=== PATIENT | male | born 1945 | race Caucasian/White ===

== ENCOUNTER → 2016-11-22 | Outpatient (CLI) | payer MEDICARE, OTHER ==
[~2016-11-22] MED LIST: ABILIFY2 MG PO; ALPARAZOLAM0.5 MG PO; APRISO0.375 GM PO; ARTIFICIAL TEAR1 OIN OP; ASPIRIN 81MG TA81 MG PO; ATORVASTATIN CA40 MG PO; AVIDOXY100 MG PO; BYETTA250 MCG/ML SC; CARVEDILOL 1212.5 MG PO; CARVEDILOL3.125 MG PO; CARVEDILOL6.25 MG PO; CELEXA40 MG PO; CENTRUM SILVER1 TA1 PO; CLARITIN 10MG T10 MG PO; CLEOCIN HCL300 MG PO; COLAZAL750 M1 PO; CYMBALTA20 MG PO; CYMBALTA60 MG PO; ENTEX PSE 400 M1 CER PO; FERROUS GLUCON324 M1 PO; FERROUS GLUCON324 MG PO; GABAPENTIN100 M1 PO; GLIMEPIRIDE 2MG2 MG PO; GLUCOPHAGE 850850 MG PO; GLUMETZA500 M1 PO; GLUMETZA500 MG PO; HYDROCHLOROTH12.5 M1 PO; HYDROCHLOROTHIA25 M1 PO; LEVAQUIN500 MG PO; LEVOTHYROXIN0.075 M3 PO; LEVOTHYROXIN0.125 M1 PO; LEXAPRO20 M1; LIALDA1.2 GM PO; LISINOPRIL 10MG10 MG PO; LISINOPRIL 20MG20 MG NG; LISINOPRIL40 MG PO; LOPRESSOR 25MG.25 MG PO; LOPRESSOR50 MG PO; LORTAB 5/500 501 TAB PO; LYRICA 100 MG100 MG PO; METFORMIN1000 MG PO; MULTI-VITAMIN1 EACH PO; NASONEX0.05 MG/AC NS; NIASPAN500 MG PO; NITROSTAT0.4 MG SL; OMEPRAZOLE20 MG PO; PHENERGAN 25MG.25 M1 PO; PRILOSEC20 M1 PO; REGLAN 10 MG TA10 MG PO; RELAFEN500 MG PO; SEROQUEL50 MG PO; SIMVASTATIN40 MG PO; ST. JOSEPH81 M1 PO; SYNTHROID 0.0.125 MG PO; TOPROL XL 50MG50 MG PO; TYLENOL ES500 MG PO; VITAMIN C500 M1 PO; VITAMIN D5000 IU PO; VITAMIN D50000 I1 PO; VITAMIN D50000 UNIT PO; XANAX 0.5MG TA0.5 MG PO; ZITHROMAX Z PA250 MG PO; ZOCOR40 MG PO; ZOVIRAX400 M1 PO
--- NOTE | 2016-11-22 11:38 | ST MODIFIED BARIUM SWALLOW ---
SUBJECTIVE-DYSPHAGIA Date: 11/22/16 Time: 1100 Eval Type: Initial Certification - Admitted Date: Primary Diagnosis: Reason for Consult: DYSPHAGIA Pt/Caregiver Concerns: COUGHING WHILE DRINKING AND EATING Onset of symptoms- 2011 Symptoms have worsened? NO improved? NO resolved? NO since onset. Current Diet: REGULAR/THINS Allergies Coded Allergies: DAIRY FOODS (FOOD) (Intermediate, NA-DIARRHEA 09/14/16) Tetanus Vaccines and Toxoid (TETANUS VACCINES & TOXOID) (Intermediate, S-SWELLS- ORAL/THROAT 09/14/16) lactose (Intermediate, NA-DIARRHEA 09/14/16) Home Medications Active Scripts Azithromycin (Zithromycin (Z-ED) 250MG Tab) 250 MG PO DAILY #6 TAB Prov: 11/12/16 Reported Medications METFORMIN HCL (Glucophage 850 Mg Tablet) 500 MG PO QID Loratadine (Claritin 10MG) 10 MG PO DAILY ASPIRIN (Aspirin) 81 MG PO DAILY Levothyroxine Sodium (Synthroid 0.125MG) 0.125 MG PO DAILY Cholecalciferol (Vitamin D3) (Vitamin D) 50,000 UNIT PO TWICE WEEKLY Alprazolam (Xanax 0.5MG) 0.5 MG PO BID Mesalamine (Apriso) 750 MG PO DAILY OMEPRAZOLE MAGNESIUM (Prilosec 20MG) 20 MG PO BID Gabapentin (Gabapentin 100MG) 100 MG PO QID Ferrous Gluconate 324 MG PO DAILY Carvedilol (Carvedilol 3.125MG) 3.125 MG PO BID Atorvastatin Calcium 40 MG PO #30 Levothyroxine Sodium 0.125 MG PO DAILY #90 Is this assessment r/t stroke? No OBJECTIVE COMMUNICATION/COGNITION Barriers to communication/cog? No ORAL-MOTOR STRUCTURE/FUNCTION Structure/Function WFL: Labial, Buccal, Lingual, Velar, Mandibular. Facial Asymmetry None Laryngeal Function Strong: Voluntary Cough, Throat Clearing. Vocal Quality Normal Dentition Partials RESPIRATORY STATUS/HISTORY Is resp status/hx a concern? No DYSPHAGIA SIGNS W/CONSISTENCY Any S/S of Dysphagia? Yes VIDEO SWALLOW REPORT Radiologist: Marlo MONGE,Miah Wei Level of consciousness: Alert Position (degrees): 90 ORAL STAGE Consistencies used for study: Thin, Pudding, Solid, Pill - WFL: Bolus Formation:, Initiation of Swallow:. - No: Chucky.spilled into pharynx, Oral Residue. PHARYNGEAL STAGE Consistencies used for study: Thin, Pudding, Solid, Pill Delayed Swallow Reflex? Yes Epiglottic Closure WFL Penetration-Laryngeal Vestibul Yes - Aspiration? No Pharyngeal Residue? Yes ASSESSMENT/PLAN ASSESSMENT Impression Mr. Nguyen, a 71 year old male, was referred for a MBS based on the recommendations of the when he was evaluated for aspiration pnuemonia via bedside evaluation of swallowing. Mr. 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 He was diagnosed in 2011 and underwent chemotherapy and radation therapy. Mr. Nguyen reports the treatments for cancer did affect his taste and smell. Since the diagnosis of cancer, he has had difficulty with thin liquids and foods that "crumble". Mr. Nguyen was given the following consistencies: thins via straw and open cup , pudding, regular, and pill with thin wash. The following signs of dysphagia were noted: penetration into laryngeal vestibule with thin consistency. It was recommended that Mr. Nguyen impliment the chin tuck compensatory strategy for liquids which improved his swallowing function. No signs of dysphagia were noted when chin tuck was utilized. Mr. Nguyen was given home exercises to strengthen laryngeal elevation, strengthen tongue control, and improve closure of true vocal fold. It is recommended that Mr. Nguyen use the chin down position to widen the valleculae and provide better airway protection. Mr. Nguyen will contact primary care physician if problems continue for therapy recommendation. PLAN SWALLOW GUIDELINES Standard Aspiration Prec., Head Positioning (Chin Down), Alt Bite w/Sip Thru Meal, SIT UPRIGHT DURING MEALS AND 30 MINUTES AFTER PATIENT/CAREGIVER EDUCATION Able-recall/restate what told? Yes Rehab Medicare G Code Plan Medicare/G Code eligible? Yes Therapy Discipline Plan: INSURANCE LOSS ASSESSOR PLAN OF CARE G Code Current Status: SWALLOWING (G8996) Current Status Modifier: 1%-19% IMPAIRED (CI) G Code Goal Status: SWALLOWING (G8997) Goal Status Modifier: 1%-19% IMPAIRED (CI) G Code Discharge Status: SWALLOWING (G8998) Discharge Status Modifier: 1%-19% IMPAIRED (CI) If pt's [facility] benefits exhausted If patient's Medicare benefits are exhausted, please review: #Min Spent: 25 at [phone]
--- NOTE | 2016-11-25 21:48 | RADIOLOGY REPORT PS360 ---
ESOPHAGUS W/CINERADIOGRAPHY INDICATION: ASPIRATION PNEUMONIA dysphagia, thin with drinking and eating. Onset of symptoms since 2011.. Aspiration pneumonia history HISTORY of throat cancer on his second consult diagnosed 2011 Since his surgery and diagnosis has had difficulty with liquids and food sacrum TECHNIQUE & FINDINGS: Study performed conjunction with these pathologist Sveta kellogg. 1 minute 45 seconds fluoroscopy Patient study the lateral projection with video esophagram recording. Various barium consistencies utilized to study swallowing mechanism. 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 Mild/moderate residual at vallecula, which cleared with subsequent swallows and thin wash Barium pill was ingested with thin barium wash And readily passed with no restriction. IMPRESSION: Significant penetration with thin liquids observed, but appear to significantly improved with chin to maneuver. With food noted Mild/moderate residual and vallecula which cleared with subsequent swallows Please see review recommendations from speech pathology
== END ==
LOC: RAD 10:35
DX: R13.10 Dysphagia, unspecified (principal); J69.0 Pneumonitis due to inhalation of food and vomit

== ENCOUNTER 2017-06-20 11:33 | Observation (INO) | payer MEDICARE, OTHER ==
[~2017-06-20] VITALS: Ht 180.3 cm; Wt 103.0 kg
--- NOTE | 2017-06-20 12:02 | HISTORY AND PHYSICAL REPORT ---
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 I have seen him multiple times in my office and have adjusted blood pressure medications several times, and he continues to have struggles with blood pressure readings alternating between 200 systolic and 90s systolic. Came to the office this morning after feeling very weak. He awoke this morning with a blood pressure of 190 systolic, took his regular medication, and on the way to the office became very weak and dizzy, unable to stand and in the office blood pressure was 60 systolic. He was alert, pleasant and talkative, but was transported to the hospital to be admitted for IV fluids, hold and his blood pressure medication and further diagnostic testing. Please note that in the last week in my office he has been evaluated for pheochromocytoma with urine metanephrines which have been negative. CT scan of his adrenal glands and unremarkable. Renal artery stenosis ultrasonography results are pending. Past medical history: Family HX Diabetes No CAD Yes Hypertension Yes Hyperlipidemia No Cancer Yes TB No Immunization HX DT/Tetanus REFUSES Flu THISFLUSEA Pneumonia Received In Past General CAD? Yes Angina: Yes UT: Yes Hypertension? Yes Hyperlipidemia? Yes CHF? No DVT? No PE? No COPD? No Asthma? No Anemia? No GERD? No Gastric ulcers? No GI Bleed? No Hernia? No Thyroid Problems? No Hypothyroidism? No CVA? Yes Seizures? No Diabetes? Yes Insulin Dependent: No Insulin Pump: No Home FSBS? No Renal Insuffiency? No UTI? Yes Stones? Yes BPH? No GB Disease: Yes Nephritic Syndrome? No Asplenia? No Hepatitis? No Sickle Cell Disease? No Arthritis? Yes Migraines? No Cataracts? No Glaucoma? Yes MRSA? No HIV? No TB? No Anxiety? No Depression? No Cancer? Yes Site: PROSTATE CA, THROAT CA Past Surgical HX Previous Surgery?Y ABDOMINAL TUMOR REMOVAL LEFT SHOULDER REPAIR X3 CHOLECYSTECTOMY NASAL SEPTUM REPAIR X2 RIGHT KNEE ARTHROSCOPY TONSILLECTOMY APPENDECTOMY CARDIAC STENTS-SEP 29 CARDIAC STENTES OCT 14 RIGHT KNEE REPLACEMENT SUBDURAL HEMATOMA LEFT ROTATOR CUFF REPAIR VAPORIZATION OF PROSTATE LT KNEE REPLACEMENT ARTIFICIAL URINARY SPHINC Current home meds: Active Scripts Azithromycin (Zithromycin (Z-ED) 250MG Tab) 250 MG PO DAILY #6 TAB Prov: 11/12/16 Reported Medications METFORMIN HCL (Glucophage 850 Mg Tablet) 500 MG PO QID Loratadine (Claritin 10MG) 10 MG PO DAILY ASPIRIN (Aspirin) 81 MG PO DAILY Levothyroxine Sodium (Synthroid 0.125MG) 0.125 MG PO DAILY Cholecalciferol (Vitamin D3) (Vitamin D) 50,000 UNIT PO TWICE WEEKLY Alprazolam (Xanax 0.5MG) 0.5 MG PO BID Mesalamine (Apriso) 750 MG PO DAILY OMEPRAZOLE MAGNESIUM (Prilosec 20MG) 20 MG PO BID Gabapentin (Gabapentin 100MG) 100 MG PO QID Ferrous Gluconate 324 MG PO DAILY Carvedilol (Carvedilol 3.125MG) 3.125 MG PO BID Atorvastatin Calcium 40 MG PO #30 Levothyroxine Sodium 0.125 MG PO DAILY #90 Social Hx: Smoking HX Tobacco No Alcohol Alcohol: No Hx of Drug Use Drug Use? No Patien't marital status is Patient's support system is excellent Review of systems: Constitutional malaise, weakness. No: fever. Respiratory No: no symptoms reported. Cardiovascular see HPI Gastrointestinal/Abdominal No no symptoms reported Genitourinary No: no symptoms reported. Musculoskeletal No: no symptoms reported. Neurological Yes: weakness. Exam: Additional information: Patient is awake, alert, oriented x3. Sitting in a chair, but is unable to stand without significant dizziness. Heart rate regular, lungs clear. Abdomen soft and nontender. No edema noted. No cranial nerve deficits. Plan: Problem List 1. Hypotension Plan: Plan will be to admit to hospital. Hold blood pressure medications for the time being. Cautious IV fluid administration. Check basic labs and echocardiogram. Cardiology consultation at 1202
[2017-06-20 12:19] VITALS: BP 126/56
[2017-06-20 12:23] VITALS: BP 126/56
[2017-06-20] MEDS ORDERED: PLAVIX 75MG TAB75 MG PO (13:03)
[2017-06-20] MEDS ORDERED: AMLO5TAB PO (13:16)
[2017-06-20] MEDS ORDERED: COLAZAL750 M1 PO (13:17)
--- NOTE | 2017-06-20 13:22 | CONSULT NOTE ---
Standard Demographics Patient Demo Date of Consultation: 06/20/17 Referring Provider: Ajith Weston MD Reason for Consultation: Hypotension PRIMARY DIAGNOSIS: HYPOTENSION Problem list Problem list: 1. CAD A. History of AK in 09/2002 with a total of 2 BMS and 1 HENOK placed over the next 1-2 months B. Patient is followed by Dr. Hosea Ochoa, Garden Consultant in [place], [place]. 2. DM, non-insulin dependent 3. HTN, labile since CVA in 08/2016 4. Recurrent CVA since August 2016 A. Patient was given TPA, 08/2016, sent from [facility] to for treatment. B. On aspirin and Plavix. 5. Previous squamous cell carcinoma of the head and neck status post surgery and chemotherapy approximately 2011 6. History of prostate cancer status post "vaporization" 7. Hypothyroidism, on replacement therapy 8. 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 I have seen him multiple times in my office and have adjusted blood pressure medications several times, and he continues to have struggles with blood pressure readings alternating between 200 systolic and 90s systolic. Came to the office this morning after feeling very weak. He awoke this morning with a blood pressure of 190 systolic, took his regular medication, and on the way to the office became very weak and dizzy, unable to stand and in the office blood pressure was 60 systolic. He was alert, pleasant and talkative, but was transported to the hospital to be admitted for IV fluids, hold and his blood pressure medication and further diagnostic testing. Please note that in the last week in my office he has been evaluated for pheochromocytoma with urine metanephrines which have been negative. CT scan of his adrenal glands and unremarkable. Renal artery stenosis ultrasonography results are pending. The above per Dr. Weston. Cardiology consulted for further evaluation of labile blood pressure. Patient states blood pressure has been poorly controlled since his stroke in August of last year. He has no symptoms until his blood pressure is either above 220 mmHg systolic or below 80 mmHg systolic. Denies any chest pain, chest pressure, tightness or shortness of breath. Past Medical History: General: Hypertension Yes CVA Yes Seizures No TB No COPD No Asthma No Diabetes Yes Insulin Dependent No Insulin Pump No Angina Yes AK Yes Hyperlipidemia Yes Urinary No Cancer Yes Rheumatic H.D. No Ulcers Yes MRSA No GB Disease Yes Past Surgical HX: Previous Surgery?Y ABDOMINAL TUMOR REMOVAL LEFT SHOULDER REPAIR X3 CHOLECYSTECTOMY NASAL SEPTUM REPAIR X2 RIGHT KNEE ARTHROSCOPY TONSILLECTOMY APPENDECTOMY CARDIAC STENTS-SEP 29 CARDIAC STENTES OCT 14 RIGHT KNEE REPLACEMENT SUBDURAL HEMATOMA LEFT ROTATOR CUFF REPAIR VAPORIZATION OF PROSTATE LT KNEE REPLACEMENT ARTIFICIAL URINARY SPHINC Allergies Coded Allergies: DAIRY FOODS (FOOD) (Intermediate, NA-DIARRHEA 09/14/16) Tetanus Vaccines and Toxoid (TETANUS VACCINES & TOXOID) (Intermediate, S-SWELLS- ORAL/THROAT 09/14/16) lactose (Intermediate, NA-DIARRHEA 09/14/16) Home medications: Reported Medications METFORMIN HCL (Glucophage 850 Mg Tablet) 500 MG PO BID Gabapentin (Gabapentin 100MG) 100 MG PO TID Carvedilol (Carvedilol 3.125MG) 12.5 MG PO BID CLOPIDOGREL BISULFATE (PLAVIX) 75 MG PO DAILY Amlodipine Besylate (Amlodipine) 5 MG PO DAILY Balsalazide Disodium (Colazal) 750 MG PO BID Loratadine (Claritin 10MG) 10 MG PO DAILY ASPIRIN (Aspirin) 81 MG PO DAILY Cholecalciferol (Vitamin D3) (Vitamin D) 50,000 UNIT PO TWICE WEEKLY Alprazolam (Xanax 0.5MG) 0.5 MG PO BID OMEPRAZOLE MAGNESIUM (Prilosec 20MG) 20 MG PO BID Ferrous Gluconate 324 MG PO DAILY Atorvastatin Calcium 40 MG PO #30 Levothyroxine Sodium 0.125 MG PO DAILY #90 Current Medications: Current Medications Acetaminophen 650 MG Q4HP PRN PO Diagnostic Test (Pha) 1 EACH W/MEALS&HS FS Insulin Human [rDNA origin] SEE ADMIN CRITERIA FOR MEDIUM INTENSITY W/MEALS&HS SC Nicotine 21 MG DAILYP PRN TD Sodium Chloride 1,000 ML .[id number] IV Immunization HX DT/Tetanus REFUSES Flu [id number] FLU SEASON Pneumonia RECEIVED IN PAST TB Test in last year No Family history Family HX Family Hx Insignificant No Diabetes No CAD Yes Hypertension Yes Hyperlipidemia No Cancer Yes TB No Social Hx: Smoking HX Tobacco No Alcohol Alcohol: No Hx of Drug Use Drug Use? No Review of systems: Constitutional see HPI, weakness. Respiratory SOB with excertion. Cardiovascular No no symptoms reported Gastrointestinal/Abdominal No no symptoms reported Genitourinary No: no symptoms reported. Musculoskeletal No: no symptoms reported. Neurological Yes: tingling. Exam: Admission Vital Signs: 1ST Vital Signs Result Date Time Pulse Ox 97 06/20 1219 B/P 126/56 06/20 1219 O2 Delivery ROOM AIR 06/20 1219 Temp 97.9 06/20 1219 Pulse 66 06/20 1219 Resp 18 06/20 1219 Last Vital Signs: Vital Signs Result Date Time Pulse 66 06/20 1223 B/P 126/56 06/20 1223 Temp 97.9 06/20 1223 Resp 18 06/20 1223 Pulse Ox 97 06/20 1223 O2 Delivery ROOM AIR 06/20 1223 Exam General appearance: alert, awake, no acute distress Neck: no carotid bruit, no JVD Cardiovascular: regular rate & rhythm, soft systolic ejection murmur noted along the LEFT sternal border. Respiratory: clear to auscultation, good air movement Extremities: moves all, no peripheral edema Neuro: alert, intact, oriented Laboratory data: Laboratory Tests 06/20/17 1215: Creatine Kinase 71, CK-MB (CK-2) Rel Index 1.1, CK and CKMB Interp 0.8, Troponin I < 0.02 Plan: Assessment: 1. Labile hypertension complicated by history of CVA 2. Evk-bstpcys-emhgvzxxq diabetes mellitus 3. Coronary artery disease with previous coronary artery stenting in 2001, currently asymptomatic. Pt sees his Garden Consultant regularly Recommendations: 1. Echocardiogram has been ordered. 2. With patient's history of CVA would recommend avoiding vasodilator medications. Would recommend switching carvedilol to Lopressor for more subtle blood pressure control. Consider using centrally acting agent such as Aldomet as needed. 3. Consider use of support stockings at 3003
--- NOTE | 2017-06-20 13:22 | CONSULT NOTE ---
Standard Demographics Patient Demo Date of Consultation: 06/20/17 Referring Provider: Ajith Weston MD Reason for Consultation: Hypotension PRIMARY DIAGNOSIS: HYPOTENSION Problem list Problem list: 1. CAD A. History of LA in 09/2002 with a total of 2 BMS and 1 HENOK placed over the next 1-2 months B. Patient is followed by Dr. Hosea Ochoa, C D Reactor Operator in [place], [place]. 2. DM, non-insulin dependent 3. HTN, labile since CVA in 08/2016 4. Recurrent CVA since August 2016 A. Patient was given TPA, 08/2016, sent from [facility] to for treatment. B. On aspirin and Plavix. 5. Previous squamous cell carcinoma of the head and neck status post surgery and chemotherapy approximately 2011 6. History of prostate cancer status post "vaporization" 7. Hypothyroidism, on replacement therapy 8. 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 I have seen him multiple times in my office and have adjusted blood pressure medications several times, and he continues to have struggles with blood pressure readings alternating between 200 systolic and 90s systolic. Came to the office this morning after feeling very weak. He awoke this morning with a blood pressure of 190 systolic, took his regular medication, and on the way to the office became very weak and dizzy, unable to stand and in the office blood pressure was 60 systolic. He was alert, pleasant and talkative, but was transported to the hospital to be admitted for IV fluids, hold and his blood pressure medication and further diagnostic testing. Please note that in the last week in my office he has been evaluated for pheochromocytoma with urine metanephrines which have been negative. CT scan of his adrenal glands and unremarkable. Renal artery stenosis ultrasonography results are pending. The above per Dr. Weston. Cardiology consulted for further evaluation of labile blood pressure. Patient states blood pressure has been poorly controlled since his stroke in August of last year. He has no symptoms until his blood pressure is either above 220 mmHg systolic or below 80 mmHg systolic. Denies any chest pain, chest pressure, tightness or shortness of breath. Past Medical History: General: Hypertension Yes CVA Yes Seizures No TB No COPD No Asthma No Diabetes Yes Insulin Dependent No Insulin Pump No Angina Yes LA Yes Hyperlipidemia Yes Urinary No Cancer Yes Rheumatic H.D. No Ulcers Yes MRSA No GB Disease Yes Past Surgical HX: Previous Surgery?Y ABDOMINAL TUMOR REMOVAL LEFT SHOULDER REPAIR X3 CHOLECYSTECTOMY NASAL SEPTUM REPAIR X2 RIGHT KNEE ARTHROSCOPY TONSILLECTOMY APPENDECTOMY CARDIAC STENTS-SEP 29 CARDIAC STENTES OCT 14 RIGHT KNEE REPLACEMENT SUBDURAL HEMATOMA LEFT ROTATOR CUFF REPAIR VAPORIZATION OF PROSTATE LT KNEE REPLACEMENT ARTIFICIAL URINARY SPHINC Allergies Coded Allergies: DAIRY FOODS (FOOD) (Intermediate, NA-DIARRHEA 09/14/16) Tetanus Vaccines and Toxoid (TETANUS VACCINES & TOXOID) (Intermediate, S-SWELLS- ORAL/THROAT 09/14/16) lactose (Intermediate, NA-DIARRHEA 09/14/16) Home medications: Reported Medications METFORMIN HCL (Glucophage 850 Mg Tablet) 500 MG PO BID Gabapentin (Gabapentin 100MG) 100 MG PO TID Carvedilol (Carvedilol 3.125MG) 12.5 MG PO BID CLOPIDOGREL BISULFATE (PLAVIX) 75 MG PO DAILY Amlodipine Besylate (Amlodipine) 5 MG PO DAILY Balsalazide Disodium (Colazal) 750 MG PO BID Loratadine (Claritin 10MG) 10 MG PO DAILY ASPIRIN (Aspirin) 81 MG PO DAILY Cholecalciferol (Vitamin D3) (Vitamin D) 50,000 UNIT PO TWICE WEEKLY Alprazolam (Xanax 0.5MG) 0.5 MG PO BID OMEPRAZOLE MAGNESIUM (Prilosec 20MG) 20 MG PO BID Ferrous Gluconate 324 MG PO DAILY Atorvastatin Calcium 40 MG PO #30 Levothyroxine Sodium 0.125 MG PO DAILY #90 Current Medications: Current Medications Acetaminophen 650 MG Q4HP PRN PO Diagnostic Test (Pha) 1 EACH W/MEALS&HS FS Insulin Human [rDNA origin] SEE ADMIN CRITERIA FOR MEDIUM INTENSITY W/MEALS&HS SC Nicotine 21 MG DAILYP PRN TD Sodium Chloride 1,000 ML .[id number] IV Immunization HX DT/Tetanus REFUSES Flu [id number] FLU SEASON Pneumonia RECEIVED IN PAST TB Test in last year No Family history Family HX Family Hx Insignificant No Diabetes No CAD Yes Hypertension Yes Hyperlipidemia No Cancer Yes TB No Social Hx: Smoking HX Tobacco No Alcohol Alcohol: No Hx of Drug Use Drug Use? No Review of systems: Constitutional see HPI, weakness. Respiratory SOB with excertion. Cardiovascular No no symptoms reported Gastrointestinal/Abdominal No no symptoms reported Genitourinary No: no symptoms reported. Musculoskeletal No: no symptoms reported. Neurological Yes: tingling. Exam: Admission Vital Signs: 1ST Vital Signs Result Date Time Pulse Ox 97 06/20 1219 B/P 126/56 06/20 1219 O2 Delivery ROOM AIR 06/20 1219 Temp 97.9 06/20 1219 Pulse 66 06/20 1219 Resp 18 06/20 1219 Last Vital Signs: Vital Signs Result Date Time Pulse 66 06/20 1223 B/P 126/56 06/20 1223 Temp 97.9 06/20 1223 Resp 18 06/20 1223 Pulse Ox 97 06/20 1223 O2 Delivery ROOM AIR 06/20 1223 Exam General appearance: alert, awake, no acute distress Neck: no carotid bruit, no JVD Cardiovascular: regular rate & rhythm, soft systolic ejection murmur noted along the LEFT sternal border. Respiratory: clear to auscultation, good air movement Extremities: moves all, no peripheral edema Neuro: alert, intact, oriented Laboratory data: Laboratory Tests 06/20/17 1215: Creatine Kinase 71, CK-MB (CK-2) Rel Index 1.1, CK and CKMB Interp 0.8, Troponin I < 0.02 Plan: Assessment: 1. Labile hypertension complicated by history of CVA 2. Vcq-faaaafs-gqrmcxboi diabetes mellitus 3. Coronary artery disease with previous coronary artery stenting in 2001, currently asymptomatic. Pt sees his C D Reactor Operator regularly Recommendations: 1. Echocardiogram has been ordered. 2. With patient's history of CVA would recommend avoiding vasodilator medications. Would recommend switching carvedilol to Lopressor for more subtle blood pressure control. Consider using centrally acting agent such as Aldomet as needed. 3. Consider use of support stockings at 6211
[2017-06-20 13:29] LABS: HEMOGLOBIN 14.2 g/dL (14.1-18.0); LYMPH # 0.9 K/mm3 (0.7-4.5); LYMPH % 8.7 % (10-50)
--- NOTE | 2017-06-20 13:39 | PHARMACY CLINIC NOTE ---
Patient Demographics Patient Demographics Admission date: 06/20/17 Date: 06/20/17 Time: 1339 Allergies Coded Allergies: DAIRY FOODS (FOOD) (Intermediate, NA-DIARRHEA 09/14/16) Tetanus Vaccines and Toxoid (TETANUS VACCINES & TOXOID) (Intermediate, S-SWELLS- ORAL/THROAT 09/14/16) lactose (Intermediate, NA-DIARRHEA 09/14/16) HEIGHT- FT: 5 IN: 11.00 K.995 VTE General Information Labs: Laboratory Tests 06/20 1215 Hematology Hgb (14.1 - 18.0 g/dL) 14.2 Hct (42.0 - 52.0 %) 43.5 Plt Count (142 - 424 K/mm3) 195 Disclaimer The following section includes nursing documentation that has been pulled in for pharmacy review. Patient's VTE score: 3 Patient's VTE Risk: LOW RISK Clinical trial participant? No VTE prophylaxis [id number] VTE prophylaxis ordered? Yes Type of prophylaxis/treatment: HUYEN at 3254
--- NOTE | 2017-06-20 15:30 | RADIOLOGY REPORT PS360 ---
PROCEDURE: 2-D M-mode and color Doppler study INDICATIONS FOR THE TEST: Chest pain COPD Heart Murmur Tobacco Smoking Palpitations Fatigue Syncope Edema Hypertension+Diabetes Mellitus+ Rheumatic Fever SOB STARKEY Obesity Hyperlipidemia Family History HD Additional History CAD, [place] 2011, CVA 2015 PATIENT INFORMATION HEIGHT: 71 WEIGHT:231 GENDER: Male B/P:125/56 2-D/M-MODE INTERPRETATION: 2-D MEASUREMENTS OBSERVED VALUES IN CMS Right Ventricular Dimension (RVDd) 3.3 Interventricular Septum (Thickness)(IVsd) 1.8 Left Ventricular Internal Dimensions(LVIDd) 4.6 Left Ventricular Posterior Wall (Thickness)(LVPWd) 1.2 Aortic Root 2.9 Aortic Cusp Separation 2.1 Left Atrial Dimensions (LAD) 4.8 2D 1. Left atrium is mildly enlarged, left ventricle is normal size, there is mild concentric left ventricular hypertrophy, visually estimated ejection fraction approximately 55% with no obvious regional wall motion abnormality. 2. The right atrium and right ventricle are mildly enlarged with normal contractility. 3. The aortic valve is minimally thickened and fibrosed leaflet continue to display good mobility. 4. The mitral valve has mitral calcification, there is no mitral stenosis. 5. The tricuspid valve is structurally normal. 6. No significant pericardial effusion noted. 7. The pulmonic valve is poorly visualized. DOPPLER INTERROGATION: Doppler interrogation of the aortic, mitral and tricuspid valvular presence of mild aortic, mild mitral and tricuspid regurgitation, tricuspid regurgitant jet velocity insufficient for calculation of the right ventricular systolic pressure, grade 1 diastolic dysfunction seen without tissue Doppler evidence of raised left atrial pressure. CONCLUSION: 1. Mildly enlarged left atrium, normal left ventricular size, mild concentric left ventricular hypertrophy, visually estimated ejection fraction 55% with no obvious regional wall motion abnormality. Grade 1 diastolic dysfunction seen without tissue Doppler evidence of raised left atrial pressure. 2. Mildly enlarged right ventricle with normal contractility. 3. Mild aortic, mitral and tricuspid regurgitation. 4. No significant pericardial effusion noted.
[2017-06-20 15:48] VITALS: BP 154/84
--- NOTE | 2017-06-20 16:17 | RADIOLOGY REPORT PS360 ---
CHEST(2 VIEWS-NOT PORTABLE) HISTORY: Hypotension admit ORDERING PHYSICIAN: Ajith Weston MD PATIENT AGE: 72 years COMPARISON: 11/11/2016 FINDINGS: The cardiomediastinal silhouette and pulmonary vascularity are within normal limits. The lungs are clear without infiltrates, suspicious nodules, or pleural effusions. No acute bony abnormalities. IMPRESSION: Negative chest, no acute finding
[2017-06-20 20:00] VITALS: BP 161/96
[2017-06-20 21:40] VITALS: BP 161/96
[2017-06-20 23:58] VITALS: BP 169/79
[2017-06-21 04:30] VITALS: BP 147/81
[2017-06-21 06:38] LABS: LYMPH # 0.9 K/mm3 (0.7-4.5); LYMPH % 15.3 % (10-50)
[2017-06-21 07:13] LABS: HEMOGLOBIN 12.5 g/dL (14.1-18.0)
[2017-06-21 07:56] VITALS: BP 154/89
[2017-06-21] MEDS ORDERED: LOPRESSOR 25MG.25 MG PO (08:43)
[2017-06-21] MEDS ORDERED: METHYLDOPA500 MG PO (08:45)
--- NOTE | 2017-06-21 08:50 | ACUTE CARE PROGRESS NOTE (QUA) ---
Progress Notes Subjective Date 06/21/17 Time 0725 Note Patient is sitting up in bed with no complaints. He has been ambulating to the bathroom with no dizziness, chest pain or shortness of breath. Alert and oriented 3. Rate and rhythm regular. No lower extremity edema. Pulses 2+ bilaterally. Abdomen soft and nontender. Patient/family reports: no complaints Nursing reports: no complaints Objective Findings Last VS-Temp:98.2 B/P:154/89 Pulse:72 Resp:20 SaO2:93 ROOM AIR Last weight lbs:227 oz:1 K.995 Method:Bed Scales Reviewed: medications, vital signs, lab results, consult note Assessment/Plan Problem List 1. Hypotension Patient condition Improving Plan: initiate discharge plan This inpt stay is expected to cross 2 MNs from start of care No Comments: He tolerated medication changes without adverse effects. Discharge home on medications as recommended by cardiology. at 0849
--- NOTE | 2017-06-21 08:53 | ACUTE CARE PROGRESS NOTE (QUA) ---
Progress Notes Subjective Date 06/21/17 Time 0830 Note 72 yo WM in bed in NAD. BP improved with IV fluids. No complaints. Objective Findings Last VS-Temp:98.2 B/P:154/89 Pulse:72 Resp:20 SaO2:93 ROOM AIR Last weight lbs:227 oz:1 K.995 Method:Bed Scales Exam General appearance: alert, awake, no acute distress Cardiovascular: regular rate & rhythm Respiratory: clear to auscultation Reviewed: medications, vital signs, lab results Assessment/Plan Problem List 1. Hypotension Patient condition Stable Plan: Pt being discharged home today. Echo shows preserved LVEF with mild HTN changes and no significant valve disease. Continue current lopressor dose and adjust as needed. Pt will follow up with his regular Ancillary Services Manager, Dr. Ochoa. This inpt stay is expected to cross 2 MNs from start of care No at 0802
--- NOTE | 2017-06-21 08:59 | DISCHARGE SUMMARY STANDARD ---
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 I have seen him multiple times in my office and have adjusted blood pressure medications several times, and he continues to have struggles with blood pressure readings alternating between 200 systolic and 90s systolic. Came to the office this morning after feeling very weak. He awoke this morning with a blood pressure of 190 systolic, took his regular medication, and on the way to the office became very weak and dizzy, unable to stand and in the office blood pressure was 60 systolic. He was alert, pleasant and talkative, but was transported to the hospital to be admitted for IV fluids, hold and his blood pressure medication and further diagnostic testing. Please note that in the last week in my office he has been evaluated for pheochromocytoma with urine metanephrines which have been negative. CT scan of his adrenal glands and unremarkable. Renal artery stenosis ultrasonography results are pending. The above per Dr. Weston. Cardiology consulted for further evaluation of labile blood pressure. Patient states blood pressure has been poorly controlled since his stroke in August of last year. He has no symptoms until his blood pressure is either above 220 mmHg systolic or below 80 mmHg systolic. Denies any chest pain, chest pressure, tightness or shortness of breath. Hospital Course Hospital Course: Patient was admitted to acute care. Telemetry was placed which was uneventful. Echocardiogram was obtained and found to be unremarkable with ejection fraction 55 percent. Cardiology was consultated who recommended discontinuing vaso- dilating medications. Patient was changed to Lopressor and Aldomet which he tolerated well through the night. He has had no further hypotension. Discharge home on Lopressor and Aldomet. See medication reconciliation for complete list. Short-term follow-up with myself on Tuesday. Discharge diagnoses Problem List 1. Hypotension Medications Medications: Discharge meds are as noted. Follow up Follow up in office in: 3 DAYS with: GERONIMO LAST APRN at [phone]
[2017-06-21 10:00] VITALS: BP 154/89
[2017-06-21 11:00] VITALS: BP 154/89
--- OUTSIDE RECORDS SUMMARY | 2017-07-28 23:12 | External Medical Summary Rpt ---
Author Author , HOLLY BARRERA Address Unknown Phone [email or web address] Purpose Continuity of Care Document - 03-14-2017 through 2016 Problems Code Diagnosis DOS Provider Status E03.9 Hypothyroid 03-22-2017 ism, unspecified E11.40 Type 2 03-22-2017 diabetes mellitus with diabetic neuropathy, unspecified E78.5 Hyperlipide 03-22-2017 demetrius, unspecified G45.9 Transient 03-22-2017 cerebral ischemic attack, unspecified H26.9 Unspecified 03-22-2017 cataract I16.0 Hypertensiv 03-22-2017 e urgency I25.10 Atheroscler 03-22-2017 otic heart disease of [place] coronary artery without angina pectoris I63.9 Cerebral 03-22-2017 infarction, unspecified I73.9 Peripheral 03-22-2017 vascular disease, unspecified I77.819 Aortic 03-22-2017 ectasia, unspecified site K29.70 Gastritis, 03-22-2017 unspecified , without bleeding K57.90 Diverticulo 03-22-2017 sis of intestine, part unspecified , without perforation or abscess without bleeding K58.9 Irritable 03-22-2017 bowel syndrome without diarrhea Q21.1 Atrial 03-22-2017 septal defect R40.2133 Coma scale, 03-22-2017 eyes open, to sound, at hospital admission R40.2142 Coma scale, 03-22-2017 eyes open, spontaneous , at arrival to emergency department R40.2252 Coma scale, 03-22-2017 best verbal response, oriented, at arrival to emergency department R40.2253 Coma scale, 03-22-2017 best verbal response, oriented, at hospital admission R40.2362 Coma scale, 03-22-2017 best motor response, obeys commands, at arrival to emergency department R40.2363 Coma scale, 03-22-2017 best motor response, obeys commands, at hospital admission Z79.82 FDC 03-22-2017 (current) use of aspirin 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 Z79.899 Other long 03-22-2017 term (current) drug therapy Z85.819 Personal 03-22-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, oral cavity, and pharynx Z96.651 Presence of 03-22-2017 right artificial knee joint Results Labs Lab Lab Date Result Refere Interp Status Commen Order Detail nces retati t Range on Vit B12 SerPl-mCnc (06-30-2017 16:02) Vit B12 442 210-103 complet 017 pg/mL 3 ed SerPl-m 16:02 Cnc Hgb A1c MFr Bld (03-15-2017 04:10) Hgb A1c 6.6 % 4.7-6.0 complet MFr 017 ed Bld 04:10 TSH SerPl DL<=0.005 mIU/L-aCnc (03-14-2017 14:59) TSH 0.33 0.4-4.2 complet SerPl 017 uIU/mL ed DL<=0.0 14:59 05 mIU/L-a Cnc
--- OUTSIDE RECORDS SUMMARY | 2017-07-28 23:12 | External Medical Summary Rpt ---
Author Author [employer] Address Unknown Phone Unavailable Purpose Continuity of Care Document - through 2016
--- OUTSIDE RECORDS SUMMARY | 2017-07-28 23:12 | External Medical Summary Rpt ---
Author Author , BÁRBARA BARRERA Address Unknown Phone [email or web address] Immunization Name Date Rout CVX Reac Dose Comm Prov Is Faci e tion ent ider Refu lity Give sed n Infl 09-2 Intr 0.5 Hist PD20 No PD20 uenz 5-20 amus mL oric 255 255 a 17 cula al Quad r Info rmat W/Pr ion es - Sour ce Unsp ecif ied
--- OUTSIDE RECORDS SUMMARY | 2017-07-28 23:12 | External Medical Summary Rpt ---
Author Author , HOLLY BARRERA Address Unknown Phone [email or web address] Purpose Continuity of Care Document - 03-14-2017 through 2016 Problems Code Diagnosis DOS Provider Status E03.9 Hypothyroid 03-22-2017 ism, unspecified E11.40 Type 2 03-22-2017 diabetes mellitus with diabetic neuropathy, unspecified E78.5 Hyperlipide 03-22-2017 demetrius, unspecified G45.9 Transient 03-22-2017 cerebral ischemic attack, unspecified H26.9 Unspecified 03-22-2017 cataract I16.0 Hypertensiv 03-22-2017 e urgency I25.10 Atheroscler 03-22-2017 otic heart disease of [place] coronary artery without angina pectoris I63.9 Cerebral [...] response, obeys commands, at hospital admission Z79.82 nursing home 03-22-2017 (current) use of aspirin 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
--- OUTSIDE RECORDS SUMMARY | 2017-07-28 23:12 | External Medical Summary Rpt ---
Author Author , BÁRBARA BARRERA Address Unknown Phone [email or web address] Immunization Name Date Rout CVX Reac Dose Comm Prov Is Faci e tion ent ider Refu lity Give sed n Infl 09-2 Intr 0.5 Hist PD20 No PD20 uenz 5-20 amus mL oric 255 255 a 17 cula al Quad r Info rmat W/Pr ion es - Sour ce Unsp ecif ied
--- OUTSIDE RECORDS SUMMARY | 2017-07-28 23:13 | External Medical Summary Rpt ---
Author Author ELIZKURT Perla, [employer] [employer] [facility] [employer] Address Unknown Phone Unavailable Results CBC W Auto Differential panel in Blood Observa Value Referen Units Interpr Notes Date tion ce etation Range Basophils 0 - 0.2 K/MM3 Normal No Jun 21 informati 2017 6:24 [#/volume on in AM ] in source Blood by data Automated count Basophils 0.1 - 2.0 % Normal No Jun 21 /100 informati 2017 6:24 leukocyte on in AM s in source Blood by data Automated count Eosinophi 0.0 - 0.4 K/mm3 Normal No Jun 21 ls informati 2017 6:24 [#/volume on in AM ] in source Blood by data Automated count Eosinophi 0.1 - % Normal No Jun 21 ls/100 12.0 informati 2017 6:24 leukocyte on in AM s in source Blood by data Automated count Granulocy 1.3 - 8.0 K/mm3 Normal No Jun 21 dianna informati 2017 6:24 [#/volume on in AM ] in source Blood by data Automated count Granulocy 37.0 - % Normal No Jun 21 dianna/100 80.0 informati 2017 6:24 leukocyte on in AM s in source Blood by data Automated count Hematocri 42.0 - % Low No Jun 21 t [Volume 52.0 informati 2017 6:24 on in AM Fraction] source of Blood data Hemoglobi 14.1 - g/dL Low No Jun 21 n 18.0 informati 2017 6:24 [Mass/vol on in AM ume] in source Blood data Lymphocyt 0.7 - 4.5 K/mm3 Normal No Jun 21 es informati 2017 6:24 [#/volume on in AM ] in source Unspecifi data ed specimen by Automated count Lymphocyt 10 - 50 % Normal No Jun 21 es informati 2017 6:24 [#/volume on in AM ] in source Unspecifi data ed specimen by Automated count Erythrocy 27 - 31.2 pg Normal No Jun 21 te mean informati 2017 6:24 corpuscul on in AM ar source hemoglobi data n [Entitic mass] Erythrocy 31.8 - g/dl Normal No Jun 21 te mean 35.4 informati 2017 6:24 corpuscul on in AM ar source hemoglobi data n concentra tion [Mass/vol ume] by Automated count Erythrocy 82.2 - fl Normal No Jun 21 te mean 97.8 informati 2017 6:24 corpuscul on in AM ar volume source [Entitic data volume] by Automated count Monocytes 0.1 - 1.0 K/mm3 Normal No Jun 21 informati 2017 6:24 [#/volume on in AM ] in source Blood by data Automated count Monocytes 1.7 - 9.3 % Normal No Jun 21 /100 informati 2017 6:24 leukocyte on in AM s in source Blood by data Automated count Platelet 7.4 - fl Normal No Jun 21 mean 10.4 informati 2017 6:24 volume on in AM [Entitic source volume] data in Blood by Automated count Platelets 142 - 424 K/mm3 Normal No Jun 21 informati 2017 6:24 [#/volume on in AM ] in source Blood data Erythrocy 4.6 - 6.2 M/mm3 Low No Jun 21 dianna informati 2017 6:24 [#/volume on in AM ] in source Amniotic data fluid Erythrocy 11.5 - % Normal No Jun 21 te 17.5 informati 2017 6:24 distribut on in AM ion width source [Entitic data volume] by Automated count Leukocyte 4.8 - K/MM3 No No Jun 21 s 10.8 informati informati 2017 6:24 [#/volume on in on in AM ] in source source Blood data data Basic metabolic panel in Blood Observa Value Referen Units Interpr Notes Date tion ce etation Range Urea 7 - 18 mg/dL Normal No Jun 21 nitrogen informati 2017 6:24 [Mass/vol on in AM ume] in source Serum or data Plasma Calcium 8.5 - mg/dL Low No Jun 21 [Mass/vol 10.1 informati 2017 6:24 ume] in on in AM Serum or source Plasma data Chloride 98 - 107 mmoL/L Normal No Jun 21 [Moles/vo informati 2017 6:24 lume] in on in AM Serum or source Plasma data Carbon 21.0 - mmoL/L Normal No Jun 21 dioxide, 32.0 informati 2017 6:24 total on in AM [Moles/vo source lume] in data Serum or Plasma Creatinin 0.70 - mg/dL Low No Jun 21 e 1.30 informati 2017 6:24 [Mass/vol on in AM ume] in source Serum or data Plasma Creatinin 50 - 200 ML/MIN No No Jun 21 e renal informati informati 2016 6:24 clearance on in on in AM source source predicted data data by Cockcroft -Gault formula Estimated >60 ML/MIN No REFERENCE Jun 21 informati RANGE: 2017 6:24 glomerula on in >60 AM r source ML/MIN/1. filtratio data 73 SQUARE n rate METERSIf (GF this patient is -A merican, then multiply theresult by 1.210. Glucose 74 - 106 mg/dL High No Jun 21 [Mass/vol informati 2016 6:24 ume] in on in AM Serum or source Plasma data Potassium 3.5 - 5.1 mmoL/L Normal No Jun 21 informati 2016 6:24 [Moles/vo on in AM lume] in source Serum or data Plasma Sodium 136 - 145 mmoL/L Normal No Jun 21 [Moles/vo informati 2016 6:24 lume] in on in AM Serum or source Plasma data Glucose [Mass/volume] in Capillary blood by Glucometer Observa Value Referen Units Interpr Notes Date tion ce etation Range Glucose 70 - 110 mg/dl Normal No Jun 21 [Mass/vol informati 2016 6:19 ume] in on in AM Capillary source blood by data Glucomete r Glucose [Mass/volume] in Capillary blood by Glucometer Observa Value Referen Units Interpr Notes Date tion ce etation Range Glucose 70 - 110 mg/dl High No Jun 20 [Mass/vol informati 2016 9:45 ume] in on in PM Capillary source blood by data Glucomete r Glucose [Mass/volume] in Capillary blood by Glucometer Observa Value Referen Units Interpr Notes Date tion ce etation Range Glucose 70 - 110 mg/dl High No Jun 20 [Mass/vol informati 2016 5:47 ume] in on in PM Capillary source blood by data Glucomete r Comprehensive metabolic 2000 panel in Serum or Plasma Observa Value Referen Units Interpr Notes Date tion ce etation Range Albumin/G 1.1 - 1.8 No Normal No Aug 28 lobulin informati informati 2016 [Mass on in on in 12:15 PM ratio] in source source Serum or data data Plasma Albumin 3.4 - 5.0 gm/dL Normal No Jun 20 [Mass/vol informati 2016 ume] in on in 12:15 PM Serum or source Plasma data Alkaline 46 - 116 U/L High No Jun 20 phosphata informati 2016 se on in 12:15 PM [Enzymati source c data activity/ volume] in Serum or Plasma Bilirubin 0.2 - 1.0 mg/dL Normal No Jun 20 .total informati 2016 [Mass/vol on in 12:15 PM ume] in source Serum or data Plasma Urea 7 - 18 mg/dL Normal No Jun 20 nitrogen informati 2016 [Mass/vol on in 12:15 PM ume] in source Serum or data Plasma Calcium 8.5 - mg/dL Low No Jun 20 [Mass/vol 10.1 informati 2016 ume] in on in 12:15 PM Serum or source Plasma data Chloride 98 - 107 mmoL/L Normal No Jun 20 [Moles/vo informati 2016 lume] in on in 12:15 PM Serum or source Plasma data Carbon 21.0 - mmoL/L Normal No Jun 20 dioxide, 32.0 informati 2016 total on in 12:15 PM [Moles/vo source lume] in data Serum or Plasma Creatinin 0.70 - mg/dL Normal No Jun 20 e 1.30 informati 2016 [Mass/vol on in 12:15 PM ume] in source Serum or data Plasma Creatinin 50 - 200 ML/MIN Normal No Jun 20 e renal informati 2016 clearance on in 12:15 PM source predicted data by Cockcroft -Gault formula Estimated >60 ML/MIN No REFERENCE Jun 20 informati RANGE: 2017 glomerula on in >60 12:15 PM r source ML/MIN/1. filtratio data 73 SQUARE n rate METERSIf (GF this patient is -A merican, then multiply theresult by 1.210. Globulin 1.3 - 3.2 gm/dL Normal No Jun 20 [Mass/vol informati 2017 ume] in on in 12:15 PM Serum source data Glucose 74 - 106 mg/dL High No Jun 20 [Mass/vol informati 2016 ume] in on in 12:15 PM Serum or source Plasma data Potassium 3.5 - 5.1 mmoL/L Normal No Jun 202016 [Moles/vo on in 12:15 PM lume] in source Serum or data Plasma Sodium 136 - 145 mmoL/L Normal No Jun 20 [Moles/vo 2016 lume] in on in 12:15 PM Serum or source Plasma data Aspartate 15 - 37 U/L Normal No Jun 202016 aminotran on in 12:15 PM sferase source [Enzymati data c activity/ volume] in Serum or Plasma Alanine 12 - 78 U/L Normal No Jun 20 aminotran 2016 sferase on in 12:15 PM [Enzymati source c data activity/ volume] in Serum or Plasma Protein 6.4 - 8.2 gm/dL Normal No Jun 20 [Mass/vol 2016 ume] in on in 12:15 PM Serum or source Plasma data CBC W Auto Differential panel in Blood Observa Value Referen Units Interpr Notes Date tion ce etation Range Basophils 0 - 0.2 K/MM3 Normal No Jun 202016 [#/volume on in 12:15 PM ] in source Blood by data Automated count Basophils 0.1 - 2.0 % Normal No Jun 20 /100 2016 leukocyte on in 12:15 PM s in source Blood by data Automated count Eosinophi 0.0 - 0.4 K/mm3 Normal No Jun 20 ls 2016 [#/volume on in 12:15 PM ] in source Blood by data Automated count Eosinophi 0.1 - % Normal No Jun 20 ls/100 12.0 2016 leukocyte on in 12:15 PM s in source Blood by data Automated count Granulocy 1.3 - 8.0 K/mm3 High No Jun 20 dianna 2016 [#/volume on in 12:15 PM ] in source Blood by data Automated count Granulocy 37.0 - % High No Jun 20 dianna/100 80.0 2016 leukocyte on in 12:15 PM s in source Blood by data Automated count Hematocri 42.0 - % Normal Jun 20 t [Volume 52.0 2016 on in 12:15 PM Fraction] source of Blood data Hemoglobi 14.1 - g/dL Normal No Jun 20 n 18.0 2016 [Mass/vol on in 12:15 PM ume] in source Blood data Lymphocyt 0.7 - 4.5 K/mm3 Normal No Jun 20 es 2016 [#/volume on in 12:15 PM ] in source Unspecifi data ed specimen by Automated count Lymphocyt 10 - 50 % Low No Jun 20 es 2016 [#/volume on in 12:15 PM ] in source Unspecifi data ed specimen by Automated count Erythrocy 27 - 31.2 pg Normal No Jun 20 te mean 2016 corpuscul on in 12:15 PM ar source hemoglobi data n [Entitic mass] Erythrocy 31.8 - g/dl Normal No Jun 20 te mean 35.4 2016 corpuscul on in 12:15 PM ar source hemoglobi data n concentra tion [Mass/vol ume] by Automated count Erythrocy 82.2 - fl Normal No Jun 20 te mean 97.8 2016 corpuscul on in 12:15 PM ar volume source [Entitic data volume] by Automated count Monocytes 0.1 - 1.0 K/mm3 Normal No Jun 202016 [#/volume on in 12:15 PM ] in source Blood by data Automated count Monocytes 1.7 - 9.3 % Normal No Jun 20 /100 2016 leukocyte on in 12:15 PM s in source Blood by data Automated count Platelet 7.4 - fl Normal No Jun 20 mean 10.4 2016 volume on in 12:15 PM [Entitic source volume] data in Blood by Automated count Platelets 142 - 424 K/mm3 Normal No Jun 202016 [#/volume on in 12:15 PM ] in source Blood data Erythrocy 4.6 - 6.2 M/mm3 Low No Jun 20 dianna 2016 [#/volume on in 12:15 PM ] in source Amniotic data fluid Erythrocy 11.5 - % Normal No Jun 20 te 17.5 2016 distribut on in 12:15 PM ion width source [Entitic data volume] by Automated count Leukocyte 4.8 - K/MM3 Normal No Jun 20 s 10.8 2016 [#/volume on in 12:15 PM ] in source Blood data MISCELLANEOUS TEST Observa Value Referen Units Interpr Notes Date tion ce etation Range MISCELL COMMENT No No No VMA, Jun 14 ANEOUS informa informa informa RANDOM 2017 TEST tion in tion in tion in URINE 9:33 AM source source source data data data RESULT REFEREN CECREAT ININE, RANDOM U 267.6 MG/DL NOT ESTAB.V MA, RANDOM URINE 6.7 MG/DL UNDEFIN EDVMA/C RT, RANDOM U 2.5 MG/G CREAT 0.0 - 6.0 Thyrotropin [Units/volume] in Serum or Plasma Observa Value Referen Units Interpr Notes Date tion ce etation Range Thyrotrop 0.358 - uIU/ml No No Jun 14 in 3.740 informati informati 2017 9:33 [Units/vo on in on in AM lume] in source source Serum or data data Plasma Vanillylmandelate [Mass/time] in 24 hour Urine Observa Value Referen Units Interpr Notes Date tion ce etation Range Vanillylm 1.8 - 6.7 mg/24hr No No Jun 14 andelate informati informati 2017 9:33 [Mass/alf on in on in AM e] in 24 source source hour data data Urine Corticotropin [Mass/volume] in Plasma Observa Value Referen Units Interpr Notes Date tion ce etation Range Corticotr 7.2 - pg/mL No ACTH Jun 14 opin 63.3 informati reference 2017 9:33 [Mass/vol on in interval AM ume] in source for Plasma data samples collected between 7 and10 AM.Perfor med at: [facility] [id number] [place], [place] [id number] Optical Engineering Manager: Valente Salinas PhD, Phone: [phone] Cortisol [Mass/volume] in Serum or Plasma Observa Value Referen Units Interpr Notes Date tion ce etation Range Cortisol . ug/dL No Cortisol Jun 14 [Mass/vol informati AM 2016 9:33 ume] in on in 6.2 - AM Serum or source 19.4Corti Plasma data julia PM 2.3 - 11.9Perfo rmed at: [id number] [id number] [place], [place] [id number] Optical Engineering Manager: Valente Salinas PhD, Phone: [phone] CBC W Auto Differential panel in Blood Observa Value Referen Units Interpr Notes Date tion ce etation Range Basophils 0 - 0.2 K/MM3 Normal No Jun 14 informati 2017 9:33 [#/volume on in AM ] in source Blood by data Automated count Basophils 0.1 - 2.0 % Normal No Jun 14 / informati 2017 9:33 leukocyte on in AM s in source Blood by data Automated count Eosinophi 0.0 - 0.4 K/mm3 Normal No Jun 14 ls informati 2017 9:33 [#/volume on in AM ] in source Blood by data Automated count Eosinophi 0.1 - % Normal No Jun 14 ls/100 12.0 informati 2016 9:33 leukocyte on in AM s in source Blood by data Automated count Granulocy 1.3 - 8.0 K/mm3 Normal No Jun 14 dianna informati 2017 9:33 [#/volume on in AM ] in source Blood by data Automated count Granulocy 37.0 - % Normal No Jun 14 dianna/100 80.0 informati 2017 9:33 leukocyte on in AM s in source Blood by data Automated count Hematocri 42.0 - % Low No Jun 14 t [Volume 52.0 informati 2017 9:33 on in AM Fraction] source of Blood data Hemoglobi 14.1 - g/dL Low No Jun 14 n 18.0 informati 2016 9:33 [Mass/vol on in AM ume] in source Blood data Lymphocyt 0.7 - 4.5 K/mm3 Normal No Jun 14 es informati 2017 9:33 [#/volume on in AM ] in source Unspecifi data ed specimen by Automated count Lymphocyt 10 - 50 % Normal No Jun 14 es informati 2017 9:33 [#/volume on in AM ] in source Unspecifi data ed specimen by Automated count Erythrocy 27 - 31.2 pg Normal No Jun 14 te mean informati 2017 9:33 corpuscul on in AM ar source hemoglobi data n [Entitic mass] Erythrocy 31.8 - g/dl Normal No Jun 14 te mean 35.4 informati 2017 9:33 corpuscul on in AM ar source hemoglobi data n concentra tion [Mass/vol ume] by Automated count Erythrocy 82.2 - fl Normal No Jun 14 te mean 97.8 informati 2016 9:33 corpuscul on in AM ar volume source [Entitic data volume] by Automated count Monocytes 0.1 - 1.0 K/mm3 Normal No Jun 14 informati 2016 9:33 [#/volume on in AM ] in source Blood by data Automated count Monocytes 1.7 - 9.3 % Normal No Jun 14 /100 informati 2017 9:33 leukocyte on in AM s in source Blood by data Automated count Platelet 7.4 - fl Low No Jun 14 mean 10.4 informati 2017 9:33 volume on in AM [Entitic source volume] data in Blood by Automated count Platelets 142 - 424 K/mm3 Normal No Jun 14 informati 2017 9:33 [#/volume on in AM ] in source Blood data Erythrocy 4.6 - 6.2 M/mm3 Low No Jun 14 dianna informati 2017 9:33 [#/volume on in AM ] in source Amniotic data fluid Erythrocy 11.5 - % Normal No Jun 14 te 17.5 informati 2017 9:33 distribut on in AM ion width source [Entitic data volume] by Automated count Leukocyte 4.8 - K/MM3 Low No Jun 14 s 10.8 informati 2017 9:33 [#/volume on in AM ] in source Blood data Comprehensive metabolic 2000 panel in Serum or Plasma Observa Value Referen Units Interpr Notes Date tion ce etation Range Albumin/G 1.1 - 1.8 No Low No Jun 14 lobulin informati informati 2017 9:32 [Mass on in on in AM ratio] in source source Serum or data data Plasma Albumin 3.4 - 5.0 gm/dL Low No Jun 14 [Mass/vol informati 2017 9:32 ume] in on in AM Serum or source Plasma data Alkaline 46 - 116 U/L Normal No Jun 14 phosphata informati 2017 9:32 se on in AM [Enzymati source c data activity/ volume] in Serum or Plasma Bilirubin 0.2 - 1.0 mg/dL Normal No Jun 14 .total informati 2017 9:32 [Mass/vol on in AM ume] in source Serum or data Plasma Urea 7 - 18 mg/dL Normal No Jun 14 nitrogen informati 2017 9:32 [Mass/vol on in AM ume] in source Serum or data Plasma Calcium 8.5 - mg/dL Normal No Jun 14 [Mass/vol 10.1 informati 2017 9:32 ume] in on in AM Serum or source Plasma data Chloride 98 - 107 mmoL/L Normal No Jun 14 [Moles/vo informati 2017 9:32 lume] in on in AM Serum or source Plasma data Carbon 21.0 - mmoL/L Normal No Jun 14 dioxide, 32.0 informati 2017 9:32 total on in AM [Moles/vo source lume] in data Serum or Plasma Creatinin 0.70 - mg/dL Low No Jun 14 e 1.30 informati 2016 9:32 [Mass/vol on in AM ume] in source Serum or data Plasma Estimated >60 ML/MIN No REFERENCE Jun 14 informati RANGE: 2017 9:32 glomerula on in >60 AM r source ML/MIN/1. filtratio data 73 SQUARE n rate METERSIf (GF this patient is -A merican, then multiply theresult by 1.210. Globulin 1.3 - 3.2 gm/dL High No Jun 14 [Mass/vol informati 2016 9:32 ume] in on in AM Serum source data Glucose 74 - 106 mg/dL High No Jun 14 [Mass/vol informati 2016 9:32 ume] in on in AM Serum or source Plasma data Potassium 3.5 - 5.1 mmoL/L Normal No Jun 14 informati 2016 9:32 [Moles/vo on in AM lume] in source Serum or data Plasma Sodium 136 - 145 mmoL/L Normal No Jun 14 [Moles/vo informati 2017 9:32 lume] in on in AM Serum or source Plasma data Aspartate 15 - 37 U/L Normal No Jun 14 informati 2016 9:32 aminotran on in AM sferase source [Enzymati data c activity/ volume] in Serum or Plasma Alanine 12 - 78 U/L Normal No Jun 14 aminotran informati 2016 9:32 sferase on in AM [Enzymati source c data activity/ volume] in Serum or Plasma Protein 6.4 - 8.2 gm/dL Normal No Jun 14 [Mass/vol informati 2016 9:32 ume] in on in AM Serum or source Plasma data
--- OUTSIDE RECORDS SUMMARY | 2017-07-28 23:13 | External Medical Summary Rpt ---
[...] collected between 7 and10 AM.Perfor med at: [facility] [id number] [place], [place] [id number] Masonry Teacher: Valente Salinas PhD, Phone: [phone] Cortisol [Mass/volume] in Serum or Plasma Observa Value Referen Units Interpr Notes Date tion ce etation Range Cortisol . ug/dL No Cortisol Jun 14 [Mass/vol informati AM 2016 9:33 ume] in on in 6.2 - AM Serum or source 19.4Corti Plasma data julia PM 2.3 - 11.9Perfo rmed at: [id number] [place], [place] [id number] Masonry Teacher: Valente Salinas PhD, Phone: [phone] CBC W Auto Differential panel in [...]
== END 2017-06-21 11:06 | disposition home or self-care (01) ==
LOC: 2ND 11:33
PROVIDERS: Internal Medicine Adolescent Medicine
DX: I95.9 Hypotension, unspecified (principal); I10 Essential (primary) hypertension; E11.9 Type 2 diabetes mellitus without complications; Z95.5 Presence of coronary angioplasty implant and graft; Z86.73 Personal history of transient ischemic attack (TIA), and cerebral infarction without residual deficits
CPT/HCPCS: G0378

== ENCOUNTER 2017-08-19 14:53 | Emergency (ER) | payer MEDICARE, OTHER ==
[~2017-08-19] VITALS: Ht 180.3 cm; Wt 108.9 kg
[~2017-08-19 14:53] MED LIST changes: +AMLO5TAB PO; +METHYLDOPA500 MG PO; +PLAVIX 75MG TAB75 MG PO
--- NOTE | 2017-08-19 15:12 | Emergency Room Report ---
History of Present Illness Time Seen by MD Canales Presenting Problem in Triage Pt arrived: Presenting Problem: Onset of symptoms date/time:/ or onset unknown for: Treatment Prior to Arrival: [employer] Provided by: Sepsis Risk Assessment: Temp: B/P: MAP: Pulse: Resp: Recent fever? Clinical Suspician of Infection? Mental Status: Sepsis Risk: Have you (or family members/close friends) recently traveled outside the [place]? If Yes, where/when: Have you had exposure to infectious disease within the past month? TB? Other? Specify: Source patient, RN notes reviewed Exam Limitations no limitations Comment Pt ate breakfast and lunch but around 2:40 pm he had a spell where he got really dizzy, broke out with a sweat and BP dropped to 67/45 and heart rate was 62 at the time. He did not black out but got really weak and things did seem to spin with him. He had a strok in Aug 2016 and was sent to . He had a TIA in February and again in May 2017 but no LOC and he had no LOC with this. He is a Diabetic and has a history of HTN, HLD Cardiac Chest Pain Chest pain indicative of cardiac No Timing/Duration this afternoon ALLERGIES Coded Allergies: DAIRY FOODS (FOOD) (Intermediate, NA-DIARRHEA 08/19/17) Tetanus Vaccines and Toxoid (TETANUS VACCINES & TOXOID) (Intermediate, S-SWELLS- ORAL/THROAT 08/19/17) lactose (Intermediate, NA-DIARRHEA 08/19/17) Home Medications Active Scripts Metoprolol Tartrate (Lopressor) 25 MG PO BID #60 TAB Prov: 06/21/17 Methyldopa 500 MG PO TID #60 TAB Prov: 06/21/17 Reported Medications METFORMIN HCL (Glucophage 850 Mg Tablet) 500 MG PO BID Gabapentin (Gabapentin 100MG) 100 MG PO TID CLOPIDOGREL BISULFATE (PLAVIX) 75 MG PO DAILY Balsalazide Disodium (Colazal) 750 MG PO BID Loratadine (Claritin 10MG) 10 MG PO DAILY ASPIRIN (Aspirin) 81 MG PO DAILY Cholecalciferol (Vitamin D3) (Vitamin D) 50,000 UNIT PO TWICE WEEKLY Alprazolam (Xanax 0.5MG) 0.5 MG PO BID OMEPRAZOLE MAGNESIUM (Prilosec 20MG) 20 MG PO BID Ferrous Gluconate 324 MG PO DAILY Atorvastatin Calcium 40 MG PO #30 Levothyroxine Sodium 0.125 MG PO DAILY #90 History Medical History General Angina: Yes CA: Yes Hypertension? Yes Hyperlipidemia? Yes CHF? No DVT? No PE? No COPD? No Asthma? No Anemia? No GERD? No Gastric ulcers? No GI Bleed? No Hernia? No Thyroid Problems? No Hypothyroidism? No CVA? Yes Seizures? No Diabetes? Yes Insulin Dependent: No Insulin Pump: No Home FSBS? No Renal Insuffiency? No End Stage Renal Disease? No UTI? Yes Stones? Yes BPH? No GB Disease: Yes Nephritic Syndrome? No Asplenia? No Hepatitis? No Sickle Cell Disease? No Arthritis? Yes Migraines? No Cataracts? Yes Glaucoma? No MRSA? No HIV? No TB? No Anxiety? No Depression? 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 No Immunization Hx DT/Tetanus REFUSES Flu THISFLUSEA Pneumonia Received In Past Surgical Hx Previous Surgery?Y ABDOMINAL TUMOR REMOVAL LEFT SHOULDER REPAIR X3 CHOLECYSTECTOMY NASAL SEPTUM REPAIR X2 RIGHT KNEE ARTHROSCOPY TONSILLECTOMY APPENDECTOMY CARDIAC STENTS-SEP 29 CARDIAC STENTES OCT 14 03 RIGHT KNEE REPLACEMENT SUBDURAL HEMATOMA LEFT ROTATOR CUFF REPAIR VAPORIZATION OF PROSTATE LT KNEE REPLACEMENT ARTIFICIAL URINARY SPHINC Family History Family Hx Diabetes No CAD Yes Hypertension Yes Hyperlipidemia No Cancer Yes TB No Social History Alcohol Alcohol: No Review of Systems All Other Systems Reviewed and Negative Constitutional see HPI Cardiovascular see HPI Skin see HPI Psychiatric/Neurological see HPI Physical Exam Vital Signs Vital Signs Date Time Temp Pulse Resp B/P Pulse O2 O2 Flow FiO2 Ox Delivery Rate 08/19 1608 58 117/63 08/19 1607 57 111/61 08/19 1607 61 97/53 08/19 1605 58 14 117/63 94 08/19 1505 98.3 62 18 98 - WBC >12,000 or <4,000 or 10% bands? 2 or more SIRS Criteria Met? B/P: MAP:66 Creatinine >2.0? UA output<0.5ml/kg/hr for 2 hrs? Platelet count >100,000? Lactate >2.0mmol/1? INR >1.2 or PTT > than 60 sec? Evidence of Organ Dysfunction? Provider documented clinical suspician of infection? N Sepsis Criteria Count: 0 Sepsis Risk: Low Sepsis Risk General Appearance normal appearance, WD/WN, no apparent distress Ear, Nose, Throat normal ENT inspection, tongue protrudesin the midline and speech is clear Neck supple, no bruits heard by me Respiratory Status No: respiratory distress. Lung Sounds bilateral: normal breath sounds. Cardiovascular normal exam, regular rate/rhythm Extremities non-tender, normal range of motion Neurologic alert, foundation maker II-XII nml as tested, normal exam, no motor/sensory deficits, oriented x 3, no arm drift, ? mild right leg drift, tongue protrudes in the midline and his speech is clear Medical Decision Making LABS/Meds/Orders Pt receiving controlled substance in ED? No Results/Orders Laboratory Tests 08/19/17 1515: Sodium 140, Potassium 3.9, Chloride 102, Carbon Dioxide 31, BUN 13, Creatinine 0.8, Estimated Creat Clear 127, Estimated GFR (MDRD) 95, Glucose 142 H, Calcium 9.0, Total Bilirubin 0.5, AST 20, ALT 23, Alkaline Phosphatase 134 H, Creatine Kinase 109, CK-MB (CK-2) Rel Index 1.8, CK and CKMB Interp 2.0, Troponin I < 0.02, B-Natriuretic Peptide 66, Total Protein 6.6, Albumin 3.2 L, Globulin 3.4 H, Albumin/Globulin Ratio 0.9 L, TSH 0.45, Free T4 Index 7.7, Thyroxine (T4) 8.4, T3 Uptake 37, WBC 5.4, RBC 4.58 L, Hgb 13.7 L, Hct 41.7 L, MCV 91.0, RDW 13.9, Plt Count 200, MPV 8.0, Gran % 70.1, Gran # 3.8, Lymphocytes % 16.7, Monocytes % 7.6, Eosinophils % 5.2, Basophils % 0.4, Lymphocytes # 0.9, Monocytes # 0.4, Eosinophils # 0.3, Basophils # 0.0, PUBS MCHC 33.0, MCH 30.0 Current Medication Orders Sig/Bebeto Start time Last Medication Dose Route Stop Time Status Admin Sodium Chloride 1,000 ML .Q1H1M 08/19 1545 DC 08/19 IV 08/19 1645 1604 Sodium Chloride 10 ML PRN PRN 08/19 1545 AC IV 08/20 1533 Sodium Chloride 1,000 ML .STK-MED ONE 08/19 1537 DC IV Sodium Chloride 10 ML PRN PRN 08/19 151 AC IV 08/20 1510 Orders Procedure Date/time Status DIET-NOTHING BY MOUTH 08/[address] HEAD REQ 08/19 1534 Active ORTHOSTATIC B/P 08/19 1534 Active ELECTROCARDIOGRAM REQUEST 08/19 151 Active IV SALINE LOCK 08/19 151 Active THYROID PANEL 2 (WITH TSH) 08/19 1511 Complete CBC WITH AUTO DIFF 08/19 1511 Complete CARDIAC ENZYMES 08/19 1511 Complete CHEM 12 PROFILE 08/19 1511 Complete BRAIN NATRIURETIC PEPTIDE 08/19 1511 Complete 12 LEAD EKG-ANUSHKA (INITIAL) 08/19 1510 Active Departure Departure Time of Disposition 174 Disposition DC Home or Self Care(routine) Clinical Impression Primary Impression: TIA (transient ischemic attack) Qualifiers: Transient cerebral ischemia type: unspecified Qualified Code: G45.9 - Transient cerebral ischemic attack, unspecified Secondary Impressions: Diabetes mellitus type 2, uncomplicated Qualifiers: Diabetes mellitus senior care insulin use: without senior care use Qualified Code: E11.9 - Type 2 diabetes mellitus without complications Condition STABLE Referrals Ajith Weston MD (Family): 3 Days-Call Office Patient Instructions DI for Transient Ischemic Attack, Transient Ischemic Attack Additional Instructions Discussed results of all tests with pt. He may have had a TIA but is now back to baseline. Offered to refer to but he does not wish to go. Advised to check sugars more often and drink more fluids and followup with Dr. Weston as needed. Discharge Counseling Counseled pt/family regarding diagnosis, test results, home care, follow up needs ED Critical Care Critical Care No If Critical Care minutes are documented, the time involved in the performance of seperately reportable procedures was not counted toward critical care time documented. I directly delivered medical care to this critically ill and/or injured patient. Timely evaluation and treatment was necessary to address the significant organ system(s) dysfunction present in this patient. at 1743
[2017-08-19 15:25] LABS: HEMOGLOBIN 13.7 g/dL (14.1-18.0); LYMPH # 0.9 K/mm3 (0.7-4.5); LYMPH % 16.7 % (10-50)
[2017-08-19 15:53] LABS: BUN 13 mg/dL (7-18); FREE THYROXIN INDEX 7.7 ug/dl (5.93-13.13)
[2017-08-19 15:55] LABS: GFR (ESTIMATED) 95 ML/MIN (>60)
--- NOTE | 2017-08-19 16:06 | RADIOLOGY REPORT PS360 ---
CHEST(2 VIEWS-NOT PORTABLE) HISTORY: DIZZY,WEAK ORDERING PHYSICIAN: Alicia Whiteside MD PATIENT AGE: 72 years COMPARISON: 06/20/2017 FINDINGS: The cardiomediastinal silhouette and pulmonary vascularity are within normal limits. Calcified nodes are present in the left hilum. No lobar consolidation or collapse.. No acute bony abnormalities. IMPRESSION: No change with no acute finding
--- NOTE | 2017-08-19 16:09 | RADIOLOGY REPORT PS360 ---
CT HEAD W/O CONTRAST HISTORY: Dizziness and weakness DIZZINESS ORDERING PHYSICIAN: Alicia Whiteside MD PATIENT AGE: 72 years COMPARISON: 09/14/2016 TECHNIQUE: Axial images obtained without contrast. Brain and bone windows reviewed. FINDINGS: No midline shift, mass effect, intracranial hemorrhage, hydrocephalus, or extra-axial fluid collection is evident. Involutional changes of age with mild atrophy and periventricular ischemic gliotic change. Prior right parietal craniotomy. Intracranial atherosclerotic changes. Mild mucosal thickening ethmoid sinuses. Small right mastoid effusion. IMPRESSION: 1. No acute intracranial findings. 2. Minimal amount fluid in right mastoid sinus and mild ethmoid sinus disease
[2017-08-19 17:57] VITALS: BP 160/90
--- OUTSIDE RECORDS SUMMARY | 2017-08-19 18:28 | External Medical Summary Rpt | CCD ---
Author Author , HOLLY BARRERA Address Unknown Phone [email or web address] Immunization Name Date Rout CVX Reac Dose Comm Prov Is Faci e tion ent ider Refu lity Give sed n Infl 09-2 Intr 0.5 Hist PD20 No PD20 uenz 5-20 amus mL oric 255 255 a 17 cula al Quad r Info rmat W/Pr ion es - Sour ce Unsp ecif ied
--- OUTSIDE RECORDS SUMMARY | 2017-08-19 18:28 | External Medical Summary Rpt | CCD ---
Author Author , HOLLY BARRERA Address Unknown Phone [email or web address] Purpose Continuity of Care Document - 03-14-2017 through 2016 Results Labs Lab Lab Date Result Refere [...]
--- OUTSIDE RECORDS SUMMARY | 2017-08-19 18:28 | External Medical Summary Rpt | CCD ---
Author Author , HOLLY BARRERA Address Unknown Phone [email or web address] Purpose Continuity of Care Document - 03-14-2017 [...]
--- OUTSIDE RECORDS SUMMARY | 2017-08-19 18:28 | External Medical Summary Rpt | CCD ---
Author Author , HOLLY BARRERA Address Unknown Phone [email or web address] Immunization Name Date Rout CVX Reac Dose Comm Prov Is Faci e tion ent ider Refu lity Give sed n Infl 09-2 Intr 0.5 Hist PD20 No PD20 uenz 5-20 amus mL oric 255 255 a 17 cula al Quad r Info rmat W/Pr ion es - Sour ce Unsp ecif ied
--- OUTSIDE RECORDS SUMMARY | 2017-08-19 18:29 | External Medical Summary Rpt ---
[...] collected between 7 and10 AM.Perfor med at: [facility] [id number] [place], [place] [id number] Hoop Bending Machine Operator: Valente Salinas PhD, Phone: [phone] Cortisol [Mass/volume] in Serum or Plasma Observa Value Referen Units Interpr Notes Date tion ce etation Range Cortisol . ug/dL No Cortisol Jun 14 [Mass/vol informati AM 2016 9:33 ume] in on in 6.2 - AM Serum or source 19.4Corti Plasma data julia PM 2.3 - 11.9Perfo rmed at: [id number] [place], [place] [id number] Hoop Bending Machine Operator: Valente Salinas PhD, Phone: [phone] CBC W Auto Differential panel in [...]
--- OUTSIDE RECORDS SUMMARY | 2017-08-19 18:29 | External Medical Summary Rpt ---
[...] collected between 7 and10 AM.Perfor med at: [facility] [id number] [place], [place] [id number] Triage Clinician: Valente Salinas PhD, Phone: [phone] Cortisol [Mass/volume] in Serum or Plasma Observa Value Referen Units Interpr Notes Date tion ce etation Range Cortisol . ug/dL No Cortisol Jun 14 [Mass/vol informati AM 2016 9:33 ume] in on in 6.2 - AM Serum or source 19.4Corti Plasma data julia PM 2.3 - 11.9Perfo rmed at: [id number] [place], [place] [id number] Triage Clinician: Valente Salinas PhD, Phone: [phone] CBC W Auto Differential panel in [...]
[2017-08-20] MEDS ORDERED: METOPROLOL25 MG PO (12:26)
[2017-08-20] MEDS ORDERED: FLUOXETINE HYDR20 MG PO (12:28)
[2017-08-20] MEDS ORDERED: METFORMIN ER500 M1 PO (12:28)
[2017-08-20] MEDS ORDERED: AMLO5TAB PO (15:02)
== END 2017-08-19 17:58 | disposition home or self-care (01) ==
LOC: UTC 14:53 → ER 14:58 → UTC 14:58 → ER 17:58
PROVIDERS: General Practice
DX: G45.9 Transient cerebral ischemic attack, unspecified (principal); E11.9 Type 2 diabetes mellitus without complications; Z79.84 Long term (current) use of oral hypoglycemic drugs; R42 Dizziness and giddiness; I10 Essential (primary) hypertension; R06.02 Shortness of breath

== ENCOUNTER 2017-08-20 12:12 | Emergency (ER) | payer MEDICARE, OTHER ==
[~2017-08-20] VITALS: Ht 182.9 cm; Wt 104.8 kg
[2017-08-20] MEDS ORDERED: METOPROLOL25 MG PO (12:26)
[2017-08-20] MEDS ORDERED: METFORMIN ER500 M1 PO (12:28)
[2017-08-20] MEDS ORDERED: FLUOXETINE HYDR20 MG PO (12:28)
--- OUTSIDE RECORDS SUMMARY | 2017-08-20 12:34 | External Medical Summary Rpt | CCD ---
Demographics Preferred Language Belarusian Marital Status Unknown Yazdanism Affiliation Unknown Race Unknown Ethnic Group Unknown Author Author , HOLLY BARRERA Address Unknown Phone Immunization Unable to retrieve immunization data due to connection failure with Immunization Registry. Please try again later.
--- OUTSIDE RECORDS SUMMARY | 2017-08-20 12:34 | External Medical Summary Rpt | CCD ---
Demographics Preferred Language Ukrainian Marital Status Unknown Judaism Affiliation Unknown Race Unknown Ethnic Group Unknown Author Author , HOLLY BARRERA Address Unknown Phone Immunization Unable to retrieve immunization data due to connection failure with Immunization Registry. Please try again later.
--- OUTSIDE RECORDS SUMMARY | 2017-08-20 12:34 | External Medical Summary Rpt | CCD ---
Author Author , HOLLY BARRERA Address Unknown Phone [email or web address] Purpose Continuity of Care Document - 03-14-2017 [...]
--- OUTSIDE RECORDS SUMMARY | 2017-08-20 12:34 | External Medical Summary Rpt | CCD ---
Author Author , HOLLY BARRERA Address Unknown Phone [email or web address] Purpose Continuity of Care Document - 03-14-2017 [...]
--- OUTSIDE RECORDS SUMMARY | 2017-08-20 12:35 | External Medical Summary Rpt ---
Author Author [employer] Organization [employer] Address Unknown Phone Unavailable Results CBC W Auto Differential panel in Blood Observa Value Referen Units Interpr Notes Date tion ce etation Range Basophils 0 - 0.2 K/MM3 Normal No Aug 19 informati 2016 3:15 [#/volume on in PM ] in source Blood by data Automated count Basophils 0.1 - 2.0 % Normal No Aug 19 / informati 2016 3:15 leukocyte on in PM s in source Blood by data Automated count Eosinophi 0.0 - 0.4 K/mm3 Normal No Aug 19 ls informati 2016 3:15 [#/volume on in PM ] in source Blood by data Automated count Eosinophi 0.1 - % Normal No Aug 19 ls/100 12.0 informati 2016 3:15 leukocyte on in PM s in source Blood by data Automated count Granulocy 1.3 - 8.0 K/mm3 Normal No Aug 19 dianna informati 2016 3:15 [#/volume on in PM ] in source Blood by data Automated count Granulocy 37.0 - % Normal No Aug 19 dianna/100 80.0 informati 2016 3:15 leukocyte on in PM s in source Blood by data Automated count Hematocri 42.0 - % Low No Aug 19 t [Volume 52.0 informati 2016 3:15 on in PM Fraction] source of Blood data Hemoglobi 14.1 - g/dL Low No Aug 19 n 18.0 informati 2016 3:15 [Mass/vol on in PM ume] in source Blood data Lymphocyt 0.7 - 4.5 K/mm3 Normal No Aug 19 es informati 2016 3:15 [#/volume on in PM ] in source Unspecifi data ed specimen by Automated count Lymphocyt 10 - 50 % Normal No Aug 19 es informati 2016 3:15 [#/volume on in PM ] in source Unspecifi data ed specimen by Automated count Erythrocy 27 - 31.2 pg Normal No Aug 19 te mean informati 2016 3:15 corpuscul on in PM ar source hemoglobi data n [Entitic mass] Erythrocy 31.8 - g/dl Normal No Aug 19 te mean 35.4 informati 2016 3:15 corpuscul on in PM ar source hemoglobi data n concentra tion [Mass/vol ume] by Automated count Erythrocy 82.2 - fl Normal No Aug 19 te mean 97.8 informati 2016 3:15 corpuscul on in PM ar volume source [Entitic data volume] by Automated count Monocytes 0.1 - 1.0 K/mm3 Normal No Aug 19 informati 2016 3:15 [#/volume on in PM ] in source Blood by data Automated count Monocytes 1.7 - 9.3 % Normal No Aug 19 informati 2016 3:15 leukocyte on in PM s in source Blood by data Automated count Platelet 7.4 - fl Normal No Aug 19 mean 10.4 informati 2016 3:15 volume on in PM [Entitic source volume] data in Blood by Automated count Platelets 142 - 424 K/mm3 No No Aug 19 informati informati 2016 3:15 [#/volume on in on in PM ] in source source Blood data data Erythrocy 4.6 - 6.2 M/mm3 Low No Aug 19 dianna informati 2016 3:15 [#/volume on in PM ] in source Amniotic data fluid Erythrocy 11.5 - % Normal No Aug 19 te 17.5 informati 2016 3:15 distribut on in PM ion width source [Entitic data volume] by Automated count Leukocyte 4.8 - K/MM3 Normal No Aug 19 s 10.8 informati 2016 3:15 [#/volume on in PM ] in source Blood data CBC W Auto Differential panel in Blood Observa Value Referen Units Interpr Notes Date tion ce etation Range Basophils 0 - 0.2 K/MM3 Normal No Jun 21 informati 2016 6:24 [#/volume on in AM ] in source Blood by data Automated count Basophils 0.1 - 2.0 % Normal No Jun 21 informati 2016 6:24 leukocyte on in AM s in source Blood by data Automated count Eosinophi 0.0 - 0.4 K/mm3 Normal No Jun 21 ls informati 2016 6:24 [#/volume on in AM ] in source Blood by data Automated count Eosinophi 0.1 - % Normal No Jun 21/100 12.0 informati 2016 6:24 leukocyte on in AM s in source Blood by data Automated count Granulocy 1.3 - 8.0 K/mm3 Normal No Jun 21 dianna informati 2016 6:24 [#/volume on in AM ] in source Blood by data Automated count Granulocy 37.0 - % Normal No Jun 21 dianna/100 80.0 informati 2017 6:24 leukocyte on in AM s in source Blood by data Automated count Hematocri 42.0 - % Low No Jun 21 t [Volume 52.0 informati 2016 6:24 on in AM Fraction] source of Blood data Hemoglobi 14.1 - g/dL Low No Jun 21 n 18.0 informati 2016 6:24 [Mass/vol on in AM ume] in source Blood data Lymphocyt 0.7 - 4.5 K/mm3 Normal No Jun 21 es informati 2017 6:24 [#/volume on in AM ] in source Unspecifi data ed specimen by Automated count Lymphocyt 10 - 50 % Normal No Jun 21 informati 2016 6:24 [#/volume on in AM ] in source Unspecifi data ed specimen by Automated count Erythrocy 27 - 31.2 pg Normal No Jun 21 te mean informati 2016 6:24 corpuscul on in AM ar source hemoglobi data n [Entitic mass] Erythrocy 31.8 - g/dl Normal No Jun 21 te mean 35.4 informati 2017 6:24 corpuscul on in AM ar source hemoglobi data n concentra tion [Mass/vol ume] by Automated count Erythrocy 82.2 - fl Normal No Jun 21 te mean 97.8 informati 2016 6:24 corpuscul on in AM ar volume [...] 424 K/mm3 Normal No Jun 21 informati 2016 6:24 [#/volume on in AM ] in source Blood data Erythrocy 4.6 - 6.2 M/mm3 Low No Jun 21 dianna informati 2016 6:24 [#/volume on in AM ] in [...] mg/dL Normal No Jun 21 nitrogen informati 2016 6:24 [Mass/vol on in AM ume] in [...] Normal No Jun 21 dioxide, 32.0 informati 2016 6:24 total on in AM [Moles/vo source lume] in data Serum or Plasma Creatinin 0.70 - mg/dL Low No Jun 21 e 1.30 informati 2016 6:24 [Mass/vol on in AM ume] in source Serum or data Plasma Creatinin 50 - 200 ML/MIN No No Jun 21 e renal informati informati 2017 6:24 clearance on in on in AM [...] mg/dL High No Jun 21 [Mass/vol informati 2017 6:24 ume] in on in [...] Albumin/G 1.1 - 1.8 No Normal No Jun 20 lobulin informati informati 2016 [Mass on in on in 12:15 PM ratio] in source source Serum or data data Plasma Albumin 3.4 - 5.0 gm/dL Normal No Jun 20 [Mass/vol informati 2016 ume] in on in 12:15 PM Serum or source Plasma data Alkaline 46 - 116 U/L High No Jun 20 phosphata informati 2017 se on in 12:15 PM [Enzymati source [...] Low No Jun 20 [Mass/vol 10.1 informati 2017 ume] in on in 12:15 [...] Normal No Jun 20 e renal informati 2017 clearance on in 12:15 PM source predicted [...] 3.5 - 5.1 mmoL/L Normal No Jun 20 inform2016 [Moles/vo on in 12:15 PM lume] in source Serum or data Plasma Sodium 136 - 145 mmoL/L Normal No Jun 20 [Moles/vo informati 2016 lume] in on in 12:15 PM Serum or source Plasma data Aspartate 15 - 37 U/L Normal No Jun 202016 aminotran on in 12:15 PM sferase source [Enzymati data c activity/ volume] in Serum or Plasma Alanine 12 - 78 U/L Normal No Jun 20 aminotran inform2016 sferase on in 12:15 PM [Enzymati source c data activity/ volume] in Serum or Plasma Protein 6.4 - 8.2 gm/dL Normal No Jun 20 [Mass/vol informati 2016 ume] in on in 12:15 PM Serum or source Plasma data CBC W Auto Differential panel in Blood Observa Value Referen Units Interpr Notes Date tion ce etation Range Basophils 0 - 0.2 K/MM3 Normal No Jun 20 inform2016 [#/volume on in 12:15 PM ] in source Blood by data Automated count Basophils 0.1 - 2.0 % Normal No Jun 20 /100 inform2016 leukocyte on in 12:15 PM s in source Blood by data Automated count Eosinophi 0.0 - 0.4 K/mm3 Normal No Jun 20 ls informati 2016 [#/volume on in 12:15 PM ] in source Blood by data Automated count Eosinophi 0.1 - % Normal No Jun 20 ls/100 12.0 inform2016 leukocyte on in 12:15 PM s in source Blood by data Automated count Granulocy 1.3 - 8.0 K/mm3 High No Jun 20 dianna inform2016 [#/volume on in 12:15 PM ] in source Blood by data Automated count Granulocy 37.0 - % High No Jun 20 dianna/100 80.0 informati 2016 leukocyte on in 12:15 PM s in source Blood by data Automated count Hematocri 42.0 - % Normal No Jun 20 t [Volume 52.0 ati 2016 on in 12:15 PM Fraction] source of Blood data Hemoglobi 14.1 - g/dL Normal No Jun 20 n 18.0 inform2016 [Mass/vol on in 12:15 PM ume] in [...] 9.3 % Normal No Jun 20 /100 informati 2016 leukocyte on in 12:15 PM s in source Blood by data Automated count Platelet 7.4 - fl Normal No Jun 20 mean 10.4 2016 volume on in 12:15 PM [Entitic source volume] data in Blood by Automated count Platelets 142 - 424 K/mm3 Normal No Jun 20 informati 2016 [#/volume on in 12:15 PM ] in source Blood data Erythrocy 4.6 - 6.2 M/mm3 Low No Jun 20 dianna informati 2016 [#/volume on in 12:15 PM ] in source Amniotic data fluid Erythrocy 11.5 - % Normal Jun 20 te 17.5 informati 2016 distribut on in 12:15 PM ion width source [Entitic data volume] by Automated count Leukocyte 4.8 - K/MM3 Normal No Jun 20 s 10.8 2016 [#/volume on in 12:15 PM ] in source Blood data MISCELLANEOUS TEST Observa Value Referen Units Interpr Notes Date ti ce etation Range MISCELL COMMENT No No No VMAJun 14 ANEOUS informa informa informa RANDOM 2017 TEST tion in tion in tion in URINE 9:33 AM source source source data data data RESULT REFEREN CECREAT ININE, RANDOM U 267.6 MG/DL NOT ESTAB.V MA, RANDOM URINE 6.7 MG/DL UNDEFIN EDVMA/C RT, RANDOM U 2.5 MG/G CREAT 0.0 - 6.0 Thyrotropin [Units/volume] in Serum or Plasma Observa Value Referen Units Interpr Notes ti ce etation Range Thyrotrop 0.358 - uIU/ml No Jun 14 in 3.740 informati informati 2016 9:33 [Units/vo on in on in AM lume] in source source Serum or data data Plasma Vanillylmandelate [Mass/time] in 24 hour Urine Observa Value Referen Units Interpr Notes Date ti ce etation Range Vanillylm 1.8 - 6.7 mg/24hr No Jun 14 andelate informati informati 2016 9:33 [Mass/alf on in on in AM e] in 24 source source hour data data Urine Corticotropin [Mass/volume] in Plasma Observa Value Referen Units Interpr Notes Date ti ce etation Range Corticotr 7.2 - pg/mL No ACTH Jun 14 opin 63.3 informati reference 2017 9:33 [Mass/vol on in interval AM ume] in source for Plasma data samples collected between 7 and10 AM.Perfor med at: [employer] [facility] [place], [place] [id number] Stoker Mechanic: Valente Salinsa PhD, Phone: [phone] Cortisol [Mass/volume] in Serum or Plasma Observa Value Referen Units Interpr Notes Date tion ce etation Range Cortisol . ug/dL No Cortisol Jun 14 [Mass/vol informati AM 2017 9:33 ume] in on in 6.2 - AM Serum or source 19.4Corti Plasma data julia PM 2.3 - 11.9Perfo rmed at: [employer] [facility] [place], [place] [id number] Stoker Mechanic: Valente Salinas PhD, Phone: [phone] CBC W Auto Differential panel in Blood Observa Value Referen Units Interpr Notes Date tion ce etation Range Basophils 0 - 0.2 K/MM3 Normal No Jun 14 informati 2016 9:33 [#/volume on in AM ] in source Blood by data Automated count Basophils 0.1 - 2.0 % Normal No Jun 14 informati 2017 9:33 leukocyte on in AM s in source Blood by data Automated count Eosinophi 0.0 - 0.4 K/mm3 Normal No Jun 14 ls informati 2016 9:33 [#/volume on in AM ] in source Blood by data Automated count Eosinophi 0.1 - % Normal No Jun 14 ls/100 12.0 informati 2016 9:33 leukocyte on in AM s in source Blood by data Automated count Granulocy 1.3 - 8.0 K/mm3 Normal No Jun 14 dianna informati 2016 9:33 [#/volume on in AM ] in source Blood by data Automated count Granulocy 37.0 - % Normal No Jun 14 dianna/100 80.0 informati 2016 9:33 leukocyte on in AM s in source Blood by data Automated count Hematocri 42.0 - % Low No Jun 14 t [Volume 52.0 informati 2016 9:33 on in AM Fraction] source of Blood data Hemoglobi 14.1 - g/dL Low No Jun 14 n 18.0 informati 2017 9:33 [Mass/vol on in AM ume] in [...] No Jun 14 te mean 97.8 informati 2017 9:33 corpuscul on in AM ar volume source [Entitic data volume] by Automated count Monocytes 0.1 - 1.0 K/mm3 Normal No Jun 14 informati 2017 [...] gm/dL Low No Jun 14 [Mass/vol informati 2016 9:32 ume] in on in AM Serum or source Plasma data Alkaline 46 - 116 U/L Normal No Jun 14 phosphata informati 2017 9:32 se on in AM [Enzymati source c data activity/ volume] in Serum or Plasma Bilirubin 0.2 - 1.0 mg/dL Normal No Jun 14 .total informati 2016 9:32 [Mass/vol on in AM ume] in source Serum or data Plasma Urea 7 - 18 mg/dL Normal No Jun 14 nitrogen informati 2016 9:32 [Mass/vol on in AM ume] in source Serum or data Plasma Calcium 8.5 - mg/dL Normal No Jun 14 [Mass/vol 10.1 informati 2016 9:32 ume] in on in AM Serum or source Plasma data Chloride 98 - 107 mmoL/L Normal No Jun 14 [Moles/vo informati 2016 9:32 lume] in on in AM Serum [...] mg/dL High No Jun 14 [Mass/vol informati 2017 9:32 ume] in on in AM Serum or source Plasma data Potassium 3.5 - 5.1 mmoL/L Normal No Jun 14 informati 2017 9:32 [Moles/vo on in AM lume] in [...] gm/dL Normal No Jun 14 [Mass/vol informati 2017 9:32 ume] in on in AM Serum or source Plasma data
--- OUTSIDE RECORDS SUMMARY | 2017-08-20 12:35 | External Medical Summary Rpt ---
[...] collected between 7 and10 AM.Perfor med at: [employer] [facility] [place], [place] [id number] Engineering Intern: Valente Salinas PhD, Phone: [phone] Cortisol [Mass/volume] in Serum or Plasma Observa Value Referen Units Interpr Notes Date tion ce etation Range Cortisol . ug/dL No Cortisol Jun 14 [Mass/vol informati AM 2017 9:33 ume] in on in 6.2 - AM Serum or source 19.4Corti Plasma data julia PM 2.3 - 11.9Perfo rmed at: [employer] [facility] [place], [place] [id number] Engineering Intern: Valente Salinas PhD, Phone: [phone] CBC W Auto Differential panel in [...]
--- NOTE | 2017-08-20 12:48 | Emergency Room Report ---
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 Onset of symptoms date/time:08/20/17/ or onset unknown for:MEDICAL HX UNKNOWN Treatment Prior to Arrival: CONSTRUCTION SERVICES TECHNICIAN Provided by: Sepsis Risk Assessment: Temp: 98.0 B/P: 151/84 MAP: 106 Pulse: 59 Resp: 18 Recent fever? N Clinical Suspician of Infection? N Mental Status: 1 - Regular (Normal Baseline) Sepsis Risk:Low Sepsis Risk Have you (or family members/close friends) recently traveled outside the [place]? N If Yes, where/when: Have you had exposure to infectious disease within the past month? N TB? Other? Specify: ALLERGIES Coded Allergies: DAIRY FOODS (FOOD) (Intermediate, NA-DIARRHEA 08/19/17) Tetanus Vaccines and Toxoid (TETANUS VACCINES & TOXOID) (Intermediate, S-SWELLS- ORAL/THROAT 08/19/17) lactose (Intermediate, NA-DIARRHEA 08/19/17) Home Medications Active Scripts Methyldopa 500 MG PO TID #60 TAB Prov: 06/21/17 Reported Medications CLOPIDOGREL BISULFATE (PLAVIX) 75 MG PO DAILY Loratadine (Claritin 10MG) 10 MG PO DAILY ASPIRIN (Aspirin) 81 MG PO DAILY Cholecalciferol (Vitamin D3) (Vitamin D) 50,000 UNIT PO TWICE WEEKLY Alprazolam (Xanax 0.5MG) 0.5 MG PO DAILY OMEPRAZOLE MAGNESIUM (Prilosec 20MG) 20 MG PO BID Gabapentin (Gabapentin 100MG) 100 MG PO BID Ferrous Gluconate 324 MG PO DAILY Balsalazide Disodium (Colazal) 750 MG PO DAILY Metoprolol Tartrate (Metoprolol) 25 MG PO DAILY Metformin HCl (Metformin ER) 500 MG PO BID FLUOXETINE HCL (Fluoxetine Hydrochloride) 20 MG PO DAILY #30 Amlodipine Besylate (Amlodipine) 5 MG PO DAILY Levothyroxine Sodium 0.125 MG PO DAILY #90 History Medical History General CAD? No Angina: Yes NH: Yes Hypertension? Yes Hyperlipidemia? Yes CHF? No DVT? No PE? No COPD? No Asthma? No Anemia? No GERD? No Gastric ulcers? No GI Bleed? No Hernia? No Thyroid Problems? No Hypothyroidism? No CVA? Yes Seizures? No Diabetes? Yes Insulin Dependent: No Insulin Pump: No Home FSBS? No Renal Insuffiency? No End Stage Renal Disease? No UTI? Yes Stones? Yes BPH? No GB Disease: Yes Nephritic Syndrome? No Asplenia? No Hepatitis? No Sickle Cell Disease? No Arthritis? Yes Migraines? No Cataracts? Yes Glaucoma? No MRSA? No HIV? No TB? No Anxiety? No Depression? 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 No Immunization Hx DT/Tetanus REFUSES Flu THISFLUSEA Pneumonia Received In Past Surgical Hx Previous Surgery?Y ABDOMINAL TUMOR REMOVAL LEFT SHOULDER REPAIR X3 CHOLECYSTECTOMY NASAL SEPTUM REPAIR X2 RIGHT KNEE ARTHROSCOPY TONSILLECTOMY APPENDECTOMY CARDIAC STENTS-SEP 29 CARDIAC STENTES OCT 14 RIGHT KNEE REPLACEMENT SUBDURAL HEMATOMA LEFT ROTATOR CUFF REPAIR VAPORIZATION OF PROSTATE LT KNEE REPLACEMENT ARTIFICIAL URINARY SPHINC Family History Family Hx Diabetes No CAD Yes Hypertension Yes Hyperlipidemia No Cancer Yes TB No Social History Smoking Hx Smoker: Never Smoker Tobacco: No Alcohol Alcohol: No Review of Systems All Other Systems Reviewed and Negative Physical Exam Vital Signs Vital Signs Date Time Temp Pulse Resp B/P Pulse O2 O2 Flow FiO2 Ox Delivery Rate 08/20 1807 59 18 160/88 91 08/20 1717 63 18 171/99 96 08/20 1630 66 18 196/106 95 08/20 1530 65 18 194/107 97 08/20 1500 66 18 192/117 97 08/20 1311 65 18 157/80 95 08/20 1218 98.0 59 18 151/84 95 General Appearance normal appearance, with dried blood on face Respiratory Status No: respiratory distress. Cardiovascular normal exam Neurologic alert, manager care II-XII nml as tested Medical Decision Making LABS/Meds/Orders Pt receiving controlled substance in ED? No Results/Orders Laboratory Tests 08/20/17 1320: Sodium 140, Potassium 4.0, Chloride 104, Carbon Dioxide 30, BUN 10, Creatinine 0.5 L, Estimated Creat Clear 195, Estimated GFR (MDRD) 163, Glucose 111 H, Calcium 9.0, Total Bilirubin 0.5, AST 17, ALT 18, Alkaline Phosphatase 133 H, Total Protein 6.5, Albumin 3.2 L, Globulin 3.3 H, Albumin/Globulin Ratio 1.0 L, WBC 5.1, RBC 4.63, Hgb 13.9 L, Hct 42.0, MCV 90.8, RDW 14.0, Plt Count 161, MPV 7.7, Gran % 69.0, Gran # 3.5, Lymphocytes % 16.6, Monocytes % 8.1, Eosinophils % 5.8, Basophils % 0.4, Lymphocytes # 0.8, Monocytes # 0.4, Eosinophils # 0.3, Basophils # 0.0, PUBS MCHC 33.1, MCH 30.0 Current Medication Orders Sig/Bebeto Start time Last Medication Dose Route Stop Time Status Admin Clonidine HCl 0 .STK-MED ONE 08/20 1639 DC .ROUTE Clonidine HCl 0.1 MG ONCE ONE 08/20 1615 DC 08/20 PO 08/20 1616 1639 Iopamidol 100 ML ONCE ONE 08/20 1500 DC 08/20 IV 08/20 1501 1456 Metoprolol Tartrate 25 MG ONCE ONE 08/20 1500 DC 08/20 PO 08/20 1501 1459 Sodium Chloride 10 ML ONCE ONE 08/20 1500 DC 08/20 IV 08/20 1501 1456 Metoprolol Tartrate 0 .STK-MED ONE 08/20 1459 DC .ROUTE Orders Procedure Date/time Status DIET-NOTHING BY MOUTH 08/20 D Active OP COURTSEY MEAL 08/[address] SCAN REQ 08/[address] CHEST SCAN REQ 08/20 1307 Complete IV SALINE LOCK 08/20 1307 Active CBC WITH AUTO DIFF 08/20 130 Complete CHEM 12 PROFILE 08/20 130 Complete Departure Departure Time of Disposition 1827 Disposition DC/XFER from ER to [facility] Clinical Impression Primary Impression: GI bleeding Qualifiers: GI bleed type/associated pathology: unspecified gastrointestinal hemorrhage type Qualified Code: K92.2 - Gastrointestinal hemorrhage, unspecified Secondary Impressions: Esophageal mass Hypertension Qualifiers: Hypertension type: essential hypertension Qualified Code: I10 - Essential (primary) hypertension Condition STABLE Referrals Enrico MONGE,Ajith (Family) Additional Instructions Referred to [facility] as a GI bleed ...accepted per protocol to Dr. Acosta Discharge Counseling Counseled pt/family regarding diagnosis, test results, follow up needs ED Critical Care Critical Care No If Critical Care minutes are documented, the time involved in the performance of seperately reportable procedures was not counted toward critical care time documented. I directly delivered medical care to this critically ill and/or injured patient. Timely evaluation and treatment was necessary to address the significant organ system(s) dysfunction present in this patient. at 3539
[2017-08-20 13:32] LABS: HEMOGLOBIN 13.9 g/dL (14.1-18.0); LYMPH # 0.8 K/mm3 (0.7-4.5); LYMPH % 16.6 % (10-50)
[2017-08-20] MEDS ORDERED: AMLO5TAB PO (15:02)
--- NOTE | 2017-08-20 15:26 | RADIOLOGY REPORT PS360 ---
CT CHEST W/ CONTRAST INDICATION: Hemoptysis BLEEDING FROM THROAT ORDERING PHYSICIAN: Alicia Whiteside MD PATIENT AGE: 72 years COMPARISON: 11/12/2011 TECHNIQUE: Axial images are obtained with contrast. Sagittal and coronal reformatted images are reviewed as well. FINDINGS: There is extensive coronary artery calcification consistent with coronary artery disease. Normal heart size. No mediastinal or hilar mass or adenopathy. Calcified nodes are present in the mediastinum and there is some nonspecific mixed density in the mid esophagus. Numerous hepatic and splenic calcifications are present. There is a small hiatal hernia. There are atelectatic changes in the lung bases and posterior hemithoraces. No effusion infiltrate or suspicious nodule. Upper abdominal images show a 9 mm isodensity left kidney posteriorly incompletely imaged into small to categorize. No evidence of aneurysm. No acute bony anomalies. IMPRESSION: 1. Bilateral lower lobe atelectatic changes with evidence of old granulomatous disease. 2. Coronary artery disease. 3. No mediastinal or hilar or pulmonary mass evident. 4. Nonspecific mixed density in the mid esophagus. Outpatient barium swallow may be of further value. IMPRESSION:
--- NOTE | 2017-08-20 15:28 | RADIOLOGY REPORT PS360 ---
CT SINUS (MAX-FACIAL W/O CONT) CLINICAL INDICATION: BLEEDING FROM THROAT ORDERING PHYSICIAN: Alicia Whiteside MD PATIENT AGE: 72 years COMPARISON: None TECHNIQUE:Axial, sagittal, and coronal images are generated and reviewed without contrast FINDINGS: Minimal mucosal thickening involves the frontal sinuses. There is mild mucosal thickening of the ethmoid sinuses. There are small bilateral maxillary retention cysts. No sinus air-fluid level evident. There is been a right inferior turbinectomy with antrectomy on the right. 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 No obvious mass or bony destructive process. There is mild thickening of the posterior wall the left maxillary sinus and there is been prior right frontal/temporal craniotomy. IMPRESSION: 1. Mild sinus disease. 2. Prior right inferior turbinectomy with antrostomy
--- NOTE | 2017-08-20 15:32 | RADIOLOGY REPORT PS360 ---
CT SOFT TISSUE NECK W/CONTRAST INDICATION: History of throat cancer, bleeding from throat, history of tonsil cancer with radiation and chemotherapy BLEEDING FROM THROAT ORDERING PHYSICIAN: Alicia Whiteside MD PATIENT AGE: 72 years COMPARISON: No previous exams available at this institution for comparison. TECHNIQUE: Axial images are obtained with contrast. Sagittal and coronal reformatted images are reviewed as well. FINDINGS: Unremarkable nasopharynx. There is some asymmetric fullness in the left base of the tongue nonspecific. Correlation with visualization recommended. The epiglottis has an unremarkable appearance as does the vocal folds. There is some nonspecific increased soft tissue density along the base of the epiglottis anteriorly which may be due to nondistention. No adenopathy or abscess evident. There is some nonspecific increased density medial to the carotid and jugular vessels and could be related to prior radiation changes. IMPRESSION: 1. No acute finding. 2. Nonspecific increased soft tissue density at the base of the epiglottis and medial to the carotid vessels which could be related to prior radiation therapy. Consider follow-up in 3 months to confirm stability. Correlation with old studies would also be helpful. There are no old and is available at this institution.
[2017-08-20 18:47] VITALS: BP 115/67
== END 2017-08-20 18:47 | disposition short-term general hospital (02) ==
LOC: ER 12:12
PROVIDERS: General Practice
DX: K92.2 Gastrointestinal hemorrhage, unspecified (principal); I10 Essential (primary) hypertension; E11.9 Type 2 diabetes mellitus without complications; Z79.82 Long term (current) use of aspirin; Z88.7 Allergy status to serum and vaccine
CPT/HCPCS: Q9967

== ENCOUNTER 2017-09-01 10:26 | Emergency (ER) | payer MEDICARE, OTHER ==
[~2017-09-01] VITALS: Ht 182.9 cm; Wt 99.8 kg
[~2017-09-01 10:26] MED LIST changes: +FLUOXETINE HYDR20 MG PO; +METFORMIN ER500 M1 PO; +METOPROLOL25 MG PO
--- NOTE | 2017-09-01 10:38 | Emergency Room Report ---
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 N Clinical Suspician of Infection? N Mental Status: 1 - Regular (Normal Baseline) Sepsis Risk:Low Sepsis Risk Have you (or family members/close friends) recently traveled outside the [place]? N If Yes, where/when: Have you had exposure to infectious disease within the past month? TB? Other? Specify: 72 years old white male with history of ankle fracture and bilateral knee replacement. He was getting dressed when he felt a pop in his LEFT hip was unable to use it for himself in the bed" and was. He is still unable to use the LEFT leg. He continues to have pain. There was no loss of movement there was no loss of color. He denies other injuries. Source patient, RN notes reviewed, family, old records Exam Limitations no limitations ALLERGIES Coded Allergies: DAIRY FOODS (FOOD) (Intermediate, NA-DIARRHEA 09/01/17) Tetanus Vaccines and Toxoid (TETANUS VACCINES & TOXOID) (Intermediate, S-SWELLS- ORAL/THROAT 09/01/17) lactose (Intermediate, NA-DIARRHEA 09/01/17) Home Medications Active Scripts Methyldopa 500 MG PO TID #60 TAB Prov: 06/21/17 Reported Medications CLOPIDOGREL BISULFATE (PLAVIX) 75 MG PO DAILY Loratadine (Claritin 10MG) 10 MG PO DAILY ASPIRIN (Aspirin) 81 MG PO DAILY Cholecalciferol (Vitamin D3) (Vitamin D) 50,000 UNIT PO TWICE WEEKLY Alprazolam (Xanax 0.5MG) 0.5 MG PO DAILY OMEPRAZOLE MAGNESIUM (Prilosec 20MG) 20 MG PO BID Gabapentin (Gabapentin 100MG) 100 MG PO BID Ferrous Gluconate 324 MG PO DAILY Balsalazide Disodium (Colazal) 750 MG PO DAILY Metoprolol Tartrate (Metoprolol) 25 MG PO DAILY Metformin HCl (Metformin ER) 500 MG PO BID FLUOXETINE HCL (Fluoxetine Hydrochloride) 20 MG PO DAILY #30 Amlodipine Besylate (Amlodipine) 5 MG PO DAILY Levothyroxine Sodium 0.125 MG PO DAILY #90 History Medical History General CAD? No Angina: Yes CO: Yes Hypertension? Yes Hyperlipidemia? Yes CHF? No DVT? No PE? No COPD? No Asthma? No Anemia? No GERD? No Gastric ulcers? No GI Bleed? No Hernia? No Thyroid Problems? No Hypothyroidism? No CVA? Yes Seizures? No Diabetes? Yes Insulin Dependent: No Insulin Pump: No Home FSBS? No Renal Insuffiency? No End Stage Renal Disease? No UTI? Yes Stones? Yes BPH? No GB Disease: Yes Nephritic Syndrome? No Asplenia? No Hepatitis? No Sickle Cell Disease? No Arthritis? Yes Migraines? No Cataracts? Yes Glaucoma? No MRSA? No HIV? No TB? No Anxiety? No Depression? 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 No Immunization Hx Ped.Immunizations UTD Yes DT/Tetanus REFUSES Flu THISFLUSEA Pneumonia Received In Past Surgical Hx Previous Surgery?Y ABDOMINAL TUMOR REMOVAL LEFT SHOULDER REPAIR X3 CHOLECYSTECTOMY NASAL SEPTUM REPAIR X2 RIGHT KNEE ARTHROSCOPY TONSILLECTOMY APPENDECTOMY CARDIAC STENTS-SEP 29 CARDIAC STENTES OCT 14 03 RIGHT KNEE REPLACEMENT SUBDURAL HEMATOMA LEFT ROTATOR CUFF REPAIR VAPORIZATION OF PROSTATE LT KNEE REPLACEMENT ARTIFICIAL URINARY SPHINC Family History Family Hx Diabetes No CAD Yes Hypertension Yes Hyperlipidemia No Cancer Yes TB No Social History Smoking Hx Smoker: Never Smoker Tobacco: No Type N/A Are you/the child exposed to second-hand smoke: No Alcohol Alcohol: No Review of Systems All Other Systems Reviewed and Negative Constitutional no symptoms reported Eyes no symptoms reported ENT no symptoms reported. Respiratory no symptoms reported Cardiovascular no symptoms reported Gastrointestinal no symptoms reported Genitourinary no symptoms reported. Musculoskeletal see HPI, joint pain Skin no symptoms reported Psychiatric/Neurological no symptoms reported Physical Exam Vital Signs Vital Signs Date Time Temp Pulse Resp B/P Pulse O2 O2 Flow FiO2 Ox Delivery Rate 09/01 1412 98.3 67 20 153/96 93 09/01 1250 98.3 67 20 172/105 93 09/01 1209 20 09/01 1129 98.3 61 20 170/85 98 09/01 1028 98.3 68 16 187/108 99 - WBC >12,000 or <4,000 or 10% bands? 2 or more SIRS Criteria Met? B/P:187/108 MAP:134 Creatinine >2.0? UA output<0.5ml/kg/hr for 2 hrs? Platelet count >100,000? Lactate >2.0mmol/1? INR >1.2 or PTT > than 60 sec? Evidence of Organ Dysfunction? Provider documented clinical suspician of infection? N Sepsis Criteria Count: 0 Sepsis Risk: Low Sepsis Risk General Appearance normal appearance, WD/WN Eye Exam - bilateral eye normal exam, bilateral eye PERRL, bilateral eye EOMI Ear, Nose, Throat hearing grossly normal, normal ENT inspection Neck normal inspection, non-tender, supple, full range of motion Respiratory Status Yes: trachea midline, chest symmetrical, non tender chest. No: respiratory distress. Lung Sounds bilateral: normal breath sounds, lungs clear. Cardiovascular normal exam, regular rate/rhythm, no peripheral edema, no gallop, no JVD, no murmur, no rub, normal peripheral pulses Peripheral Pulses Pulses normal Yes Gastrointestinal normal bowel sounds, normal exam, non tender, soft, no organomegaly Back normal inspection, no CVA tenderness, no vertebral tenderness Extremities tenderness over the LEFT hip joint posteriorly with no skin changes, strong bilateral femoral pulses and dorsalis pedis pulsation. 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 No Results/Orders Laboratory Tests 09/01/17 1038: Sodium 139, Potassium 4.3, Chloride 101, Carbon Dioxide 31, BUN 12, Creatinine 0.8, Estimated Creat Clear 116, Estimated GFR (MDRD) 95, Glucose 126 H, Calcium 9.6, Total Bilirubin 0.6, AST 23, ALT 36, Alkaline Phosphatase 226 H, Total Protein 7.4, Albumin 3.6, Globulin 3.8 H, Albumin/Globulin Ratio 0.9 L, WBC 4.4 L, RBC 5.28, Hgb 15.7, Hct 48.2, MCV 91.4, RDW 14.1, Plt Count 168, MPV 7.6 , Gran % 62.8, Gran # 2.7, Lymphocytes % 23.5, Monocytes % 7.6, Eosinophils % 5.4, Basophils % 0.7, Lymphocytes # 1.0, Monocytes # 0.3, Eosinophils # 0.2, Basophils # 0.0, PUBS MCHC 33.2, MCH 30.3 Current Medication Orders Sig/Bebeto Start time Last Medication Dose Route Stop Time Status Admin Ketorolac 0 .STK-MED ONE 09/01 1207 DC Tromethamine .ROUTE Ketorolac 30 MG ONCE ONE 09/01 1200 DC 09/01 Tromethamine IV 09/01 1201 1209 Sodium Chloride 10 ML PRN PRN 09/01 1030 AC IV 09/02 1028 Orders Procedure Date/time Status DIET-NOTHING BY MOUTH 09/01 D Active OP COURTSEY MEAL 09/[address] SCAN REQ 09/01 1152 Complete CBC WITH AUTO DIFF 09/01 1032 Complete CHEM 12 PROFILE 09/01 1032 Complete IV SALINE LOCK 09/01 1029 Active Departure Departure Time of Disposition 1309 Disposition DC Home or Self Care(routine) Clinical Impression Primary Impression: Hip pain, left Secondary Impressions: Osteoarthritis (arthritis due to wear and tear of joints) , Sciatica of left side Condition STABLE Referrals Ajith Weston MD (PCP/Family) Additional Instructions I CALLED DR TAYLOR AND DISCUSSED WITHHIM THE MECHANISM OF INJURY. I DISCUSSED WITHTHE ALDO AND WE AGREED TO ADD CT SCAN LEFT HIP TO MAKE SURE NO HAIR LINE FRACTURE . ALSO WILL DO ADDITIONAL VIEWS OF THE KNEE JOINT. THE CHERYLETN AND HIS WERE AGREEABLE. CT SCAN WAS NEGATIVE AND I DISCUSSED THE KNEE X RAY WITH DR TAYLOR WHO BELEIVES IT IS POST SURGICAL CHANGES. discussed with the cheryletn and his the need for ortho follow up and they agreed. Discharge Counseling Counseled pt/family regarding diagnosis, test results, medications/RX, home care Prescriptions Current Visit Scripts Meloxicam (Mobic) 7.5 MG PO Q12HP #14 TAB ED Critical Care Critical Care No If Critical Care minutes are documented, the time involved in the performance of seperately reportable procedures was not counted toward critical care time documented. I directly delivered medical care to this critically ill and/or injured patient. Timely evaluation and treatment was necessary to address the significant organ system(s) dysfunction present in this patient. at 4605
--- OUTSIDE RECORDS SUMMARY | 2017-09-01 10:43 | External Medical Summary Rpt | CCD ---
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 I63.9 Cerebral [...] response, obeys commands, at hospital admission 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 Z79.84 senior care 03-22-2017 (current) use of oral hypoglycemi c drugs Z79.899 Other long 03-22-2017 term (current) drug therapy Z85.819 Personal 03-22-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, oral cavity, and pharynx Z96.651 Presence of 03-22-2017 right artificial knee joint Results Labs Lab Lab Date Result Refere Interp Status Commen Order Detail nces retati t Range on Magnesium SerPl-mCnc (08-21-2017 03:00) Magnesi 2.3 1.9-2.4 complet um 017 mg/dL ed SerPl-m 03:00 Cnc Hgb A1c MFr Bld (08-21-2017 03:00) Hgb A1c 6.4 % 4.7-6.0 complet MFr 017 ed Bld 03:00 TSH SerPl DL<=0.005 mIU/L-aCnc (08-21-2017 03:00) TSH 0.62 0.4-4.2 complet SerPl 017 uIU/mL ed DL<=0.0 03:00 05 mIU/L-a Cnc Phosphate SerPl-mCnc (08-20-2017 21:07) Phospha 3.4 2.5-4.5 complet te 017 mg/dL ed SerPl-m 21:07 Cnc Magnesium SerPl-mCnc (08-20-2017 21:07) Magnesi 1.5 1.9-2.4 complet um 017 mg/dL ed SerPl-m 21:07 Cnc Lipase SerPl-cCnc (08-20-2017 21:07) Lipase 16 U/L 19-63 complet SerPl-c 017 ed Cnc 21:07 Lactate Bld-sCnc (08-20-2017 21:07) Lactate 2.3 complet 017 mmol/L ed Bld-sCn 21:07 c Vit B12 SerPl-mCnc (06-30-2017 16:02) Vit B12 442 210-103 complet 017 pg/mL 3 ed SerPl-m 16:02 Cnc Hgb A1c MFr Bld (03-15-2017 04:10) Hgb A1c 6.6 % 4.7-6.0 complet MFr 017 ed Bld 04:10 TSH SerPl DL<=0.005 mIU/L-aCnc (03-14-2017 14:59) TSH 0.33 0.4-4.2 complet SerPl 017 uIU/mL ed DL<=0.0 14:59 05 mIU/L-a Cnc
--- OUTSIDE RECORDS SUMMARY | 2017-09-01 10:43 | External Medical Summary Rpt | CCD ---
Author Author , HOLLY BARRERA Address Unknown Phone [email or web address] Immunization Name Date Rout CVX Reac Dose Comm Prov Is Faci e tion ent ider Refu lity Give sed n Infl 09-2 Intr 0.5 Hist PD20 No PD20 uenz 5-20 amus mL oric 255 255 a 17 cula al Quad r Info rmat W/Pr ion es - Sour ce Unsp ecif ied
--- OUTSIDE RECORDS SUMMARY | 2017-09-01 10:43 | External Medical Summary Rpt | CCD ---
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
--- OUTSIDE RECORDS SUMMARY | 2017-09-01 10:43 | External Medical Summary Rpt | CCD ---
Author Author , HOLLY BARRERA Address Unknown Phone [email or web address] Immunization Name Date Rout CVX Reac Dose Comm Prov Is Faci e tion ent ider Refu lity Give sed n Infl 09-2 Intr 0.5 Hist PD20 No PD20 uenz 5-20 amus mL oric 255 255 a 17 cula al Quad r Info rmat W/Pr ion es - Sour ce Unsp ecif ied
--- OUTSIDE RECORDS SUMMARY | 2017-09-01 10:44 | External Medical Summary Rpt ---
Author Author ELIZKURT Perla, HOLLY [employer] Address Unknown Phone Unavailable Results Comprehensive metabolic 2000 panel in Serum or Plasma Observa Value Referen Units Interpr Notes Date tion ce etation Range Albumin/G 1.1 - 1.8 No Low No Aug 20 lobulin informati informati 2017 1:20 [Mass on in on in PM ratio] in source source Serum or data data Plasma Albumin 3.4 - 5.0 gm/dL Low No Aug 20 [Mass/vol informati 2017 1:20 ume] in on in PM Serum or source Plasma data Alkaline 46 - 116 U/L High No Aug 20 phosphata informati 2017 1:20 se on in PM [Enzymati source c data activity/ volume] in Serum or Plasma Bilirubin 0.2 - 1.0 mg/dL Normal No Aug 20 .total informati 2016 1:20 [Mass/vol on in PM ume] in source Serum or data Plasma Urea 7 - 18 mg/dL Normal No Aug 20 nitrogen informati 2017 1:20 [Mass/vol on in PM ume] in source Serum or data Plasma Calcium 8.5 - mg/dL Normal No Aug 20 [Mass/vol 10.1 informati 2017 1:20 ume] in on in PM Serum or source Plasma data Chloride 98 - 107 mmoL/L Normal No Aug 20 [Moles/vo informati 2017 1:20 lume] in on in PM Serum or source Plasma data Carbon 21.0 - mmoL/L Normal No Aug 20 dioxide, 32.0 informati 2017 1:20 total on in PM [Moles/vo source lume] in data Serum or Plasma Creatinin 0.70 - mg/dL Low No Aug 20 e 1.30 informati 2017 1:20 [Mass/vol on in PM ume] in source Serum or data Plasma Creatinin 50 - 200 ML/MIN No No Jul 28 e renal informati informati 2017 1:20 clearance on in on in PM source source predicted data data by Cockcroft -Gault formula Estimated >60 ML/MIN No REFERENCE Aug 20 informati RANGE: 2017 1:20 glomerula on in >60 PM r source ML/MIN/1. filtratio data 73 SQUARE n rate METERSIf (GF this patient is -A merican, then multiply theresult by 1.210. Globulin 1.3 - 3.2 gm/dL High No Aug 20 [Mass/vol informati 2016 1:20 ume] in on in PM Serum source data Glucose 74 - 106 mg/dL High No Aug 20 [Mass/vol informati 2016 1:20 ume] in on in PM Serum or source Plasma data Potassium 3.5 - 5.1 mmoL/L Normal No Aug 202016 1:20 [Moles/vo on in PM lume] in source Serum or data Plasma Sodium 136 - 145 mmoL/L Normal No Aug 20 [Moles/vo 2016 1:20 lume] in on in PM Serum or source Plasma data Aspartate 15 - 37 U/L Normal No Aug 202016 1:20 aminotran on in PM sferase source [Enzymati data c activity/ volume] in Serum or Plasma Alanine 12 - 78 U/L Normal No Aug 20 aminotran 2016 1:20 sferase on in PM [Enzymati source c data activity/ volume] in Serum or Plasma Protein 6.4 - 8.2 gm/dL Normal No Aug 20 [Mass/vol informati 2016 1:20 ume] in on in PM Serum or source Plasma data CBC W Auto Differential panel in Blood Observa Value Referen Units Interpr Notes Date tion ce etation Range Basophils 0 - 0.2 K/MM3 Normal No Aug 202016 1:20 [#/volume on in PM ] in source Blood by data Automated count Basophils 0.1 - 2.0 % Normal No Aug 20 informati 2016 1:20 leukocyte on in PM s in source Blood by data Automated count Eosinophi 0.0 - 0.4 K/mm3 Normal No Aug 20 ls informati 2016 1:20 [#/volume on in PM ] in source Blood by data Automated count Eosinophi 0.1 - % Normal No Aug 20 ls/100 12.0 informati 2016 1:20 leukocyte on in PM s in source Blood by data Automated count Granulocy 1.3 - 8.0 K/mm3 Normal No Aug 20 dianna 2016 1:20 [#/volume on in PM ] in source Blood by data Automated count Granulocy 37.0 - % Normal No Aug 20 dianna/100 80.0 informati 2016 1:20 leukocyte on in PM s in source Blood by data Automated count Hematocri 42.0 - % Normal No Aug 20 t [Volume 52.0 informati 2016 1:20 on in PM Fraction] source of Blood data Hemoglobi 14.1 - g/dL Low No Aug 20 n 18.0 informati 2016 1:20 [Mass/vol on in PM ume] in source Blood data Lymphocyt 0.7 - 4.5 K/mm3 Normal No Aug 20 es informati 2016 1:20 [#/volume on in PM ] in source Unspecifi data ed specimen by Automated count Lymphocyt 10 - 50 % Normal No Aug 20 es informati 2016 1:20 [#/volume on in PM ] in source Unspecifi data ed specimen by Automated count Erythrocy 27 - 31.2 pg Normal No Aug 20 te mean informati 2016 1:20 corpuscul on in PM ar source hemoglobi data n [Entitic mass] Erythrocy 31.8 - g/dl Normal No Aug 20 te mean 35.4 informati 2016 1:20 corpuscul on in PM ar source hemoglobi data n concentra tion [Mass/vol ume] by Automated count Erythrocy 82.2 - fl Normal No Aug 20 te mean 97.8 informati 2016 1:20 corpuscul on in PM ar volume source [Entitic data volume] by Automated count Monocytes 0.1 - 1.0 K/mm3 Normal No Aug 20 informati 2016 1:20 [#/volume on in PM ] in source Blood by data Automated count Monocytes 1.7 - 9.3 % Normal No Aug 20 /100 informati 2017 1:20 leukocyte on in PM s in source Blood by data Automated count Platelet 7.4 - fl Normal No Aug 20 mean 10.4 informati 2016 1:20 volume on in PM [Entitic source volume] data in Blood by Automated count Platelets 142 - 424 K/mm3 Normal No Aug 20 informati 2016 1:20 [#/volume on in PM ] in source Blood data Erythrocy 4.6 - 6.2 M/mm3 Normal No Aug 20 dianna informati 2016 1:20 [#/volume on in PM ] in source Amniotic data fluid Erythrocy 11.5 - % Normal No Aug 20 te 17.5 informati 2016 1:20 distribut on in PM ion width source [Entitic data volume] by Automated count Leukocyte 4.8 - K/MM3 Normal No Aug 20 s 10.8 informati 2016 1:20 [#/volume on in PM ] in source Blood data CBC W Auto Differential panel in Blood Observa Value Referen Units Interpr Notes Date tion ce etation Range Basophils 0 - 0.2 K/MM3 Normal No Aug 19 informati 2016 3:15 [#/volume on in PM ] in source Blood by data Automated count Basophils 0.1 - 2.0 % Normal No Aug 19 /100 informati 2016 3:15 leukocyte on in PM [...] Normal No Aug 19 te mean 35.4 inform2016 3:15 corpuscul on in PM ar source hemoglobi data n concentra tion [Mass/vol ume] by Automated count Erythrocy 82.2 - fl Normal No Aug 19 te mean 97.8 inform2016 3:15 corpuscul on in PM ar volume source [Entitic data volume] by Automated count Monocytes 0.1 - 1.0 K/mm3 Normal No Aug 19 inform2016 3:15 [#/volume on in PM ] in [...] 142 - 424 K/mm3 No No Aug 19ati informati 2016 3:15 [#/volume on in on [...] Normal No Jun 21 ls/100 12.0 informati 2016 6:24 leukocyte on in [...] % Normal No Jun 21 es informati 2016 6:24 [#/volume on in AM [...] 5.1 mmoL/L Normal No Jun 21 informati 2017 6:24 [Moles/vo on in AM lume] in [...] Interpr Notes Date ti ce etation Range Glucose 70 - 110 mg/dl High No Jun 20 [Mass/vol informati 2016 9:45 ume] in on in PM Capillary source blood by data Glucomete r Glucose [Mass/volume] in Capillary blood by Glucometer Observa Value Referen Units Interpr Notes Date ti ce etation Range Glucose 70 - 110 mg/dl High No Jun 20 [Mass/vol informati 2016 5:47 ume] in on in PM Capillary source blood by data Glucomete r Comprehensive metabolic 2000 panel in Serum or Plasma Observa Value Referen Units Interpr Notes Date ti ce etation Range Albumin/G 1.1 - 1.8 [...] mg/dL Normal No Jun 20 .total informati 2017 [Mass/vol on in 12:15 PM ume] in [...] mmoL/L Normal No Jun 20 [Moles/vo informati 2017 lume] in on in 12:15 PM Serum or source Plasma data Carbon 21.0 - mmoL/L Normal No Jun 20 dioxide, 32.0 2016 total on in 12:15 PM [Moles/vo source lume] in data Serum or Plasma Creatinin 0.70 - mg/dL Normal No Jun 20 e 1.30 inform2016 [Mass/vol on in 12:15 PM ume] in source Serum or data Plasma Creatinin 50 - 200 ML/MIN Normal No Jun 20 e renal 2016 clearance on in 12:15 PM source [...] 0.4 K/mm3 Normal No Jun 20 ls inform2016 [#/volume on in 12:15 PM ] [...] % High No Jun 20 dianna/100 80.0 inform2016 leukocyte on in 12:15 PM s in source Blood by data Automated count Hematocri 42.0 - % Normal No Jun 20 t [Volume 52.0 2016 on [...] 9.3 % Normal No Jun 20 /100 inform2016 leukocyte on in 12:15 PM s in source Blood by data Automated count Platelet 7.4 - fl Normal No Jun 20 mean 10.4 informati 2016 volume on in 12:15 PM [Entitic [...] % Normal No Jun 20 te 17.5 ati 2016 distribut on in 12:15 PM ion width source [Entitic data volume] by Automated count Leukocyte 4.8 - K/MM3 Normal No Jun 20 s 10.8 informati 2016 [#/volume on in 12:15 PM [...] Interpr Notes Date ti ce etation Range Thyrotrop 0.358 - uIU/ml No No Jun 14 in 3.740 informati informati 2016 9:33 [Units/vo on in on in AM lume] in source source Serum or data data Plasma Vanillylmandelate [Mass/time] in 24 hour Urine Observa Value Referen Units Interpr Notes Date ti ce etation Range Vanillylm 1.8 - 6.7 mg/24hr No No Jun 14 andelate informati informati 2016 [...] collected between 7 and10 AM.Perfor med at: [facility] [place], [place] [id number] [employer] Rehabilitation Therapist: Valente Salinas PhD, Phone: [phone] Cortisol [Mass/volume] in Serum or Plasma Observa Value Referen Units Interpr Notes Date tion ce etation Range Cortisol . ug/dL No Cortisol Jun 14 [Mass/vol informati AM 2016 9:33 ume] in on in 6.2 - AM Serum or source 19.4Corti Plasma data julia PM 2.3 - 11.9Perfo rmed at: [facility] [place], [place] [id number] [employer] Therapist: Valente Salinas PhD, Phone: [phone] CBC W Auto Differential panel in [...] Low No Jun 14 e 1.30 informati 2017 9:32 [Mass/vol on in AM ume] in source Serum or data Plasma Estimated >60 ML/MIN No REFERENCE Jun 14 informati RANGE: 2017 9:32 glomerula on in >60 AM r source ML/MIN/1. filtratio data 73 SQUARE n rate METERSIf (GF this patient is -A merican, then multiply theresult by 1.210. Globulin 1.3 - 3.2 gm/dL High No Jun 14 [Mass/vol informati 2017 [...]
--- OUTSIDE RECORDS SUMMARY | 2017-09-01 10:44 | External Medical Summary Rpt ---
Author Author ELIZKURT Perla, HOLLY NX[employer] Organization [employer] Address Unknown Phone Unavailable [...] collected between 7 and10 AM.Perfor med at: [facility] [place], [place] [id number] Employee Wellness/Fitness Coordinator: Valente Salinas PhD, Phone: [phone] Cortisol [Mass/volume] in Serum or Plasma Observa Value Referen Units Interpr Notes Date tion ce etation Range Cortisol . ug/dL No Cortisol Jun 14 [Mass/vol informati AM 2016 9:33 ume] in on in 6.2 - AM Serum or source 19.4Corti Plasma data julia PM 2.3 - 11.9Perfo rmed at: [facility] [place], [place] [id number] Employee Wellness/Fitness Coordinator: Valente Salinas PhD, Phone: [phone] CBC W Auto Differential panel in [...]
[2017-09-01 11:00] LABS: LYMPH % 23.5 % (10-50)
[2017-09-01 11:01] LABS: HEMOGLOBIN 15.7 g/dL (14.1-18.0)
--- NOTE | 2017-09-01 11:32 | RADIOLOGY REPORT PS360 ---
HIP LT 2-3V W/PELVIS IF PERFOR HISTORY: Pain PAIN, NO INJURY. FELT HIP COLLAPSE WHEN PUTTING PANTS ON ORDERING PHYSICIAN: Dale Ash MD PATIENT AGE: 72 years COMPARISON: None FINDINGS: No fracture or dislocation. No destructive process. There are mild osteoarthritic changes of the hips on both sides and there is generalized vascular calcification. IMPRESSION: 1. No acute finding. 2. Mild osteoarthritic change
--- NOTE | 2017-09-01 11:33 | RADIOLOGY REPORT PS360 ---
CHEST-PORTABLE HISTORY: Pain following injury, prostate cancer, throat cancer FALL ORDERING PHYSICIAN: Dale Ash MD PATIENT AGE: 72 years COMPARISON: August 19, 2017 FINDINGS: The cardiomediastinal silhouette and pulmonary vascularity are within normal limits. The lungs are clear without infiltrates, suspicious nodules, or pleural effusions. No acute bony abnormalities. IMPRESSION: Negative chest, no acute finding
--- NOTE | 2017-09-01 11:38 | RADIOLOGY REPORT PS360 ---
FEMUR-LT-2 VIEWS HISTORY: Pain following injury FALL ORDERING PHYSICIAN: Dale Ash MD PATIENT AGE: 72 years COMPARISON: None FINDINGS: The proximal and mid aspect of the femur have an unremarkable appearance with no evidence of acute fracture. 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 On the lateral view there is a thin somewhat irregular lucency just proximal to the femoral component of the knee replacement. It is uncertain whether this represents an acute fracture or chronic change from the previous knee replacement. There are no previous exams available for comparison. Please correlate with clinical findings. This patient has focal pain in this area. There is generalized vascular calcification and hypertrophic changes of the patella IMPRESSION: 1. Unremarkable proximal mid femur. 2. Possible nondisplaced transverse fracture just proximal to the femoral component of the total knee replacement. Please correlate with clinical findings.
--- NOTE | 2017-09-01 12:36 | RADIOLOGY REPORT PS360 ---
CT EXT.LOWER-LT-W/O CONTRAST INDICATION: Left hip pain following injury/collapse/popping SUDDEN LEFT HIP PAIN AND POPPING ORDERING PHYSICIAN: Dale Ash MD PATIENT AGE: 72 years COMPARISON: None TECHNIQUE: Axial images are obtained without contrast. Sagittal and coronal reformatted images are reviewed as well. FINDINGS: There are mild osteoarthritic changes of the left hip. No fracture or dislocation. No effusion or hematoma apparent. There is generalized vascular calcification. There is a 9 mm calcific density superior to the lesser trochanteric could be due to a synovial osteochondroma or loose body. Incidental note made of diverticulosis of the sigmoid colon IMPRESSION: 1. No acute fracture. 2. Osteoarthritic change of the left hip with loose body versus small synovial osteochondroma. IMPRESSION:
[2017-09-01] MEDS ORDERED: Mobic7.5 MG PO (13:13)
--- NOTE | 2017-09-01 13:17 | RADIOLOGY REPORT PS360 ---
KNEE-LIMITED 2 VIEWS-LT HISTORY: Prior knee replacement, pain ABNORMAL FEMUR X RAY WITH NO ACUTE PAIN ORDERING PHYSICIAN: Dale Ash MD PATIENT AGE: 72 years COMPARISON: None FINDINGS: Status post total knee replacement. On the femur images there was a question of a lucency at the distal femur. This is not apparent on the dedicated knee images and was likely due to artifact. There is a thin transverse linear density at this region which could be related to the previous surgery. Osteophytes and heterotopic bone formation is noted with a knee joint effusion. IMPRESSION: Postsurgical changes with knee joint effusion, no acute finding
[2017-09-01 14:12] VITALS: BP 153/96
== END 2017-09-01 14:19 | disposition home or self-care (01) ==
LOC: ER 10:26
PROVIDERS: Emergency Medicine
DX: M25.552 Pain in left hip (principal); M54.32 Sciatica, left side; I10 Essential (primary) hypertension; E11.9 Type 2 diabetes mellitus without complications; Z79.84 Long term (current) use of oral hypoglycemic drugs; Z79.82 Long term (current) use of aspirin